=== PATIENT | female | born 1965 | race Caucasian/White ===

== ENCOUNTER 2017-08-21 11:34 | Inpatient (IN) ==
[2017-08-21 15:20] LABS: INR 1.1; Prothrombin Time 11.7 Seconds (9.4-12.1)
[2017-08-21 15:22] LABS: Activated Partial Thrombo Time 33.7 Seconds (26.0-36.0)
[2017-08-21 15:28] LABS: BUN/Creatinine Ratio 13 (6-26); Blood Urea Nitrogen 10 mg/dL (6-20); Carbon Dioxide 20 mEq/L (23-29); Chloride 102 mEq/L (98-107); Glucose 115 mg/dL (70-105); Osmolality,Calculated 278 (280-300); Potassium 3.9 mEq/L (3.5-5.1); Sodium 134 mEq/L (136-145); eGFR For African Americans > 60 (> 60); eGFR For Non-African Americans > 60 (> 60)
[2017-08-21 15:30] LABS: Troponin I < 0.03 ng/mL (< 0.04)
[2017-08-21 15:31] LABS: Basophils % 0.5 %; Eosinophils # 0.2 K/mcL (0.0-0.6); Eosinophils % 2.1 %; Hematocrit 46.2 % (35.3-44.9); Hemoglobin 14.7 g/dL (11.5-15.4); Immature Granulocytes % 0.5 % (0-4); Lymphocytes # 1.8 K/mcL (0.6-4.6); Lymphocytes % 20.7 %; Mean Corpuscular HGB Conc 31.8 g/dL (31.6-35.5); Mean Corpuscular Hemoglobin 28.5 pg (28.0-33.3); Mean Corpuscular Volume 89.5 fL (83.0-100.0); Mean Platelet Volume 9.9 fL (9.4-12.4); Monocytes # 0.8 K/mcL (0.0-1.3); Neutrophils # 5.7 K/mcL (1.6-8.9); Platelet Count 229 K/mcL (140-400); Red Blood Count 5.16 M/mcL (3.82-4.97); Red Cell Distribution Width 13.8 % (11.5-14.5); Segmented Neutrophils % 67.2 %
[2017-08-21] MEDS ORDERED: Aspirin 325 MG TABLET PO ONE (15:40)
--- NOTE | 2017-08-21 15:43 | Emergency Department Note ---
Disposition Clinical Impression: TIA (transient ischemic attack) Qualifiers: Transient cerebral ischemia type: unspecified Qualified Code(s): G45.9 - Transient cerebral ischemic attack, unspecified Disposition: Admitted As Inpatient Referrals: Danya Adkins CNP [Primary Care Provider] - General Adult HPI - General Chief complaint: ED Back Pain/Injury Stated complaint: "pinched nerve" in back per neurology Dr Putnam Time Seen by Provider: 08/21/17 14:34 Source: patient Limitations: no limitations - History of Present Illness Pain Scale: 4 - Related Data Home Medications Medication Instructions Recorded Confirmed Furosemide [Lasix] 20 mg PO DAILY 07/06/16 08/21/17 ALPRAZolam [Xanax 0.5 MG Tablet] 0.5 mg PO TID PRN 06/29/17 08/21/17 Doxepin [Sinequan] 100 mg PO HS 06/29/17 08/21/17 Aspirin [Adult Aspirin Regimen] 81 mg PO DAILY 08/21/17 08/21/17 Atorvastatin [Lipitor] 40 mg PO HS 08/21/17 08/21/17 Dicyclomine [Bentyl] 20 mg PO QID 08/21/17 08/21/17 Folic Acid [Folic Acid] 1 mg PO DAILY 08/21/17 08/21/17 Gabapentin [Neurontin] 300 mg PO TID 08/21/17 08/21/17 Melatonin 5 mg PO HS 08/21/17 08/21/17 Metoprolol Succinate [Toprol Xl] 25 mg PO DAILY 08/21/17 08/21/17 Nystatin POWDER [Nystop] 1 appl TP BID 08/21/17 08/21/17 Omeprazole [PriLOSEC] 40 mg PO DAILY 08/21/17 08/21/17 PARoxetine HCl [Paroxetine HCl] 50 mg PO DAILY 08/21/17 08/21/17 Ropinirole HCl [Requip] 3 mg PO HS 08/21/17 08/21/17 Tizanidine HCl 4 mg PO TID 08/21/17 08/21/17 Topiramate [Topamax] 200 mg PO BID 08/21/17 08/21/17 Allergies Allergy/AdvReac Type Severity Reaction Status Date / Time naproxen [From Naprosyn] Allergy Hives Verified 08/21/17 15:31 Amoxicillin AdvReac Vomiting Verified 08/21/17 15:31 ketorolac [From Toradol] AdvReac Nausea Verified 08/21/17 15:31 tramadol [From Ultram] AdvReac Nausea Verified 08/21/17 15:31 Past Medical History - Past Medical History Medical history: Reports: asthma, COPD, diabetes, hypertension Surgical history: Reports: appendectomy, , cholecystectomy, hysterectomy Psychiatric history: Reports: anxiety, depression, panic disorder 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 - Social History Smoking Status: Never smoker Smokeless Tobacco Status: No Alcohol use: Reports: none Drug use: Reports: none Physical Exam - General Limitations: no limitations General appearance: alert Course Vital Signs Temperature 97.8 F 08/21/17 11:45 Pulse Rate 73 08/21/17 11:45 Respiratory Rate 20 08/21/17 11:45 Blood Pressure 92/68 08/21/17 11:45 O2 Sat by Pulse Oximetry 97 08/21/17 11:45 Temperature 97.8 F 08/21/17 12:57 Pulse Rate 87 08/21/17 15:33 Respiratory Rate 18 08/21/17 15:33 Blood Pressure 106/58 08/21/17 15:33 O2 Sat by Pulse Oximetry 96 08/21/17 15:33 Oxygen Delivery Oxygen Delivery Room Air Medical Decision Making - Lab Data Result diagrams: 08/21/17 14:58 08/21/17 14:58 Lab Results 08/21/17 08/21/17 08/21/17 Range/Units 14:58 14:58 14:58 WBC 8.5 (4.3-11.1) K/mcL RBC 5.16 H (3.82-4.97) M/mcL Hgb 14.7 (11.5-15.4) g/dL Hct 46.2 H (35.3-44.9) % MCV 89.5 (83.0-100.0) fL MCH 28.5 (28.0-33.3) pg MCHC 31.8 (31.6-35.5) g/dL RDW 13.8 (11.5-14.5) % Plt Count 229 (140-400) K/mcL MPV 9.9 (9.4-12.4) fL Immature Gran % 0.5 (0-4) % Seg Neutrophils % 67.2 % Lymphocytes % 20.7 % Monocytes % 9.0 % Eosinophils % 2.1 % Basophils % 0.5 % Neutrophils # 5.7 (1.6-8.9) K/mcL Lymphocytes # 1.8 (0.6-4.6) K/mcL Monocytes # 0.8 (0.0-1.3) K/mcL Eosinophils # 0.2 (0.0-0.6) K/mcL Basophils # 0.0 (0.0-0.2) K/mcL PT 11.7 (9.4-12.1) Seconds INR 1.1 APTT 33.7 (26.0-36.0) Seconds Sodium 134 L (136-145) mEq/L Potassium 3.9 (3.5-5.1) mEq/L Chloride 102 (98-107) mEq/L Carbon Dioxide 20 L (23-29) mEq/L BUN 10 (6-20) mg/dL Creatinine 0.77 (0.60-1.20) mg/dL Est GFR ( Amer) > 60 (> 60) Est GFR (Non-Af Amer) > 60 (> 60) BUN/Creatinine Ratio 13 (6-26) Glucose 115 H (70-105) mg/dL Calculated Osmolality 278 L (280-300) Calcium 9.0 (8.6-10.3) mg/dL Troponin I < 0.03 (< 0.04) ng/mL Attestation Statement - Attestation Attestation: I examined this patient and my medical decision-making was reviewed with the Resident Physician. I agree with the documented findings, disposition and treatment plan as described except to the extent set forth below. 51 year old female presents to the ED with complaints of right leg neuro defecits that have been going on for some time. Jeancarlos was being seen by Dr. Putnam for EMG and he was concnerd that perhaps a stroke may have occured at some point. Dr. putnam has sent jeancarlos here for initial evaluation and admission to the hospital for TIA r/o CVA workup. HCT is negative. ASA has been given. We will admit to medicine with neurolgoy consult
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
[2017-08-21] MEDS ORDERED: Naloxone 0.4 MG/ML INJ IVP PRN (20:37)
[2017-08-21] MEDS: tiZANidine 4 MG TABLET PO SCH (22:34)
[2017-08-21] MEDS: Gabapentin 300 MG CAPSULE PO SCH (22:35)
[2017-08-21] MEDS: Topiramate 100 MG TABLET PO SCH (22:35)
[2017-08-21] MEDS: Melatonin 3 MG TABLET PO SCH (22:48)
[2017-08-21] MEDS ORDERED: Ipratropium/Albuterol Neb 3 ML IH PRN (22:51)
--- NOTE | 2017-08-21 23:10 | Internal Med History&Physical ---
Date of Encounter: 08/21/17 Time of Encounter: 19:00 Internal Medicine - H&P: HPI Chief complaint: Right leg weakness Admitted From: Home Plans for Post Hospital Care: Home History of present illness: Ms. Weinstein is a 51 year old female sent to ER from neurology office for left leg weakness. Past medical history is significant for diabetes on diet control only, COPD on home oxygen, CAD S/P LHC but no stent. Patient was admitted in [facility] for CAD and had LHC there in July. Patient said she started to have right side leg weakness after LHC. Patient denies slurred speech, vision change, dizziness, other parts of body weakness. Patient has frequent fall due to right leg weakness. she was referred to neurology by PCP for possible EMG to rule out nerve problems. Patient was suspected CVA and send to ER for CVA workup. In the emergency room, CT head negative. Patient was admitted for further examination include MRI. Past Med Surg Social Fam HX - Past Medical History Medical history: asthma, COPD, diabetes, hypertension Additional medical history: pinched nerves Psychiatric history: anxiety, depression, panic disorder - Past Surgical History Surgical History: appendectomy, , cholecystectomy, hysterectomy Additional surgical history: Left knee replaced - Social History Smoking Status: Never smoker Smokeless Tobacco Status: No Alcohol use: none Drug use: none - Family History Mother History Unknown: Yes Internal Medicine - H&P: Meds Furosemide [Lasix] 20 mg PO DAILY 07/06/16 [History] ALPRAZolam [Xanax 0.5 MG Tablet] 0.5 mg PO TID PRN 06/29/17 [History] Doxepin [Sinequan] 100 mg PO HS 06/29/17 [History] Aspirin [Adult Aspirin Regimen] 81 mg PO DAILY 08/21/17 [History] Atorvastatin [Lipitor] 40 mg PO HS 08/21/17 [History] Dicyclomine [Bentyl] 20 mg PO QID 08/21/17 [History] Folic Acid [Folic Acid] 1 mg PO DAILY 08/21/17 [History] Gabapentin [Neurontin] 300 mg PO TID 08/21/17 [History] Melatonin 9 mg PO HS 08/21/17 [History] Metoprolol Succinate [Toprol Xl] 25 mg PO DAILY 08/21/17 [History] Nystatin POWDER [Nystop] 1 appl TP BID 08/21/17 [History] Omeprazole [PriLOSEC] 40 mg PO DAILY 08/21/17 [History] PARoxetine HCl [Paroxetine HCl] 50 mg PO DAILY 08/21/17 [History] Ropinirole HCl [Requip] 3 mg PO HS 08/21/17 [History] Tizanidine HCl 4 mg PO TID 08/21/17 [History] Topiramate [Topamax] 200 mg PO BID 08/21/17 [History] 3 Allergy/AdvReac Type Severity Reaction Status Date / Time naproxen [From Naprosyn] Allergy Hives Verified 08/21/17 15:31 Amoxicillin AdvReac Vomiting Verified 08/21/17 15:31 ketorolac [From Toradol] AdvReac Nausea Verified 08/21/17 15:31 tramadol [From Ultram] AdvReac Nausea Verified 08/21/17 15:31 All Systems PM: A 10-system review of systems was performed and is negative for pertinent findings except as documented above in the HPI. - Constitutional Vitals: Temp Pulse Resp BP Pulse Ox 98.3 F 65 16 117/82 95 08/21/17 20:29 08/21/17 20:29 08/21/17 20:29 08/21/17 20:29 08/21/17 20:29 General appearance: Present: A&O X 3, no acute distress, answers questions appropriately - Head Head exam: Present: atraumatic, normocephalic - Eye Eye exam: Present: PERRL, conjuntiva pink, sclera anicteric Pupils: Present: PERRL - Neck Neck exam general surgery: Present: supple, trachea midline. Absent: lymphadenopathy - Respiratory Respiratory exam: Present: CTAB, wheezes (Scattered wheezes bilaterally). Absent: accessory muscle use, rales, rhonchi - Cardiovascular Cardiovascular exam: Present: RRR, +S1, +S2. Absent: diastolic murmur, gallop, rubs, systolic murmur - GI/Abdominal GI/Abdominal exam: Present: normal bowel sounds, soft, no peritoneal signs. Absent: distended, tenderness - Extremities Exam Extremities exam: Present: warm, radial pulses palpable and symmetrical. Absent : calf tenderness, cyanotic, pedal edema - Neurological Exam Neurological exam: Present: CN II-XII intact, motor sensory deficit (Right leg Motor 5-/5), oriented X3, no focal deficits. Absent: pronater drift, facial droop, speech deficit - Skin Skin exam: Present: dry, intact Internal Med - H&P Results - Labs CBC & Chem 7: 08/21/17 14:58 08/21/17 14:58 - Impressions ITS Impressions Brain MRI 08/21/17 20:41 IMPRESSION: Left frontal lobe subcortical white matter signal abnormality with volume loss suggesting chronic infarct. A component of subacute ischemia may also be present. Nonspecific cerebral white matter T2 FLAIR hyperintensities suggestive of chronic microvascular ischemic changes. D/ / 08/21/2017 22:45:26 Alfredo Hughes / saumya Interpreting Provider: Alfredo Hughes - Assessment and plan (1) Ischemic cerebrovascular accident (CVA) Current Visit: Yes Status: Acute Assessment and plan: patient has Right leg weakness. MRI shows left front lobe infarct. - Continue cardiac monitoring - Echo and duplex carotid - PTOT evaluation - Aspirin and atorvastatin - Patient passed bedside swallow evaluation - Neurology consult (2) COPD (chronic obstructive pulmonary disease) Current Visit: Yes Status: Acute Assessment and plan: Patient has wheezing. Will place patient on bronchodilator scheduled and when necessary. Order chest CT to rule out lung disease. Qualifiers: COPD type: emphysema Emphysema type: unspecified Qualified Code(s): J43.9 - Emphysema, unspecified (3) Diabetes mellitus Current Visit: Yes Status: Acute Assessment and plan: Continue diet control Qualifiers: Diabetes mellitus type: type 2 Diabetes mellitus long-term insulin use: without microsoft dynamics consultant use Diabetes mellitus complication status: without complication Qualified Code(s): E11.9 - Type 2 diabetes mellitus without complications (4) DVT prophylaxis Current Visit: Yes Status: Acute Assessment and plan: Heparin subcutaneously - Time Spent With Patient Total time spent is greater than 50% in coordination of care (as documented) at patient's floor/unit and/or counseling patient: 40 minutes Greater than 35 minutes
--- NOTE | 2017-08-21 23:17 | Event Note ---
Date of Encounter: 08/21/17 Time of Encounter: 22:58 Notified by [facility] of abnormal MRI results. Discussed results w/Dr. Hughes who stated that the volume loss seen on MRI suggests chronic infarct of the left frontal lobe in subcortical white matter. He also stated that the potential for subacute ischemia may also be present. In addition, non-specific cerebral white matter T2 FLAIR hyperintensities are suggestive of chronic microvascular ischemic changes. Pts. hx includes recent LHC at [facility] in July 2017. Pt. reported having right leg weakness post-LHC w/frequent falls but denies slurred speech, dizziness, focal deficits, or vision changes. CT of head unremarkable. Neurology consult ordered. Pt. to be monitored closely.
[2017-08-22] MEDS ORDERED: *HR* HYDROcodone/Acet 5/325 mg TABLET PO ONE (01:23)
[2017-08-22] MEDS: Nystatin POWDER 30 GM BOTTLE TP SCH ×3 (01:46→21:10)
[2017-08-22 02:14] LABS: Basophils % 0.5 %; Eosinophils # 0.2 K/mcL (0.0-0.6); Eosinophils % 2.2 %; Hematocrit 42.9 % (35.3-44.9); Hemoglobin 13.8 g/dL (11.5-15.4); Immature Granulocytes % 0.2 % (0-4); Lymphocytes # 1.7 K/mcL (0.6-4.6); Lymphocytes % 19.2 %; Mean Corpuscular HGB Conc 32.2 g/dL (31.6-35.5); Mean Corpuscular Hemoglobin 28.5 pg (28.0-33.3); Mean Corpuscular Volume 88.6 fL (83.0-100.0); Mean Platelet Volume 10.1 fL (9.4-12.4); Monocytes # 0.8 K/mcL (0.0-1.3); Monocytes % 9.3 %; Neutrophils # 5.9 K/mcL (1.6-8.9); Platelet Count 216 K/mcL (140-400); Red Blood Count 4.84 M/mcL (3.82-4.97); Red Cell Distribution Width 13.7 % (11.5-14.5); Segmented Neutrophils % 68.6 %
[2017-08-22 02:31] LABS: BUN/Creatinine Ratio 14 (6-26); Blood Urea Nitrogen 11 mg/dL (6-20); Calcium 9.1 mg/dL (8.6-10.3); Carbon Dioxide 26 mEq/L (23-29); Chloride 102 mEq/L (98-107); Chol/HDL Ratio 4.9 (0-4.9); Cholesterol 175 mg/dL (< 200); Glucose 132 mg/dL (70-105); HDL Cholesterol 36 mg/dL (40-59); LDL Cholesterol,Calculated 110 mg/dL (0-99); Magnesium 2.1 mg/dL (1.6-2.6); Osmolality,Calculated 289 (280-300); Potassium 3.1 mEq/L (3.5-5.1); Sodium 139 mEq/L (136-145); Triglycerides 145 mg/dL (< 150); eGFR For African Americans > 60 (> 60); eGFR For Non-African Americans > 60 (> 60)
[2017-08-22] MEDS: Ipratropium/Albuterol Neb 3 ML IH SCH ×4 (04:07→22:04)
[2017-08-22] MEDS: *HR* Heparin 5,000 UNIT/ML VIAL SQ SCH ×2 (05:16→17:17)
[2017-08-22] MEDS: Furosemide 20 MG TABLET PO SCH (09:06)
[2017-08-22] MEDS: Topiramate 100 MG TABLET PO SCH ×2 (09:06→21:07)
[2017-08-22] MEDS: tiZANidine 4 MG TABLET PO SCH ×3 (09:06→21:07)
[2017-08-22] MEDS: Aspirin Enteric Coated 81 MG Tablet PO SCH (09:06)
[2017-08-22] MEDS: Metoprolol XL (24 HR) Succ 25 MG TAB.ER.24H PO SCH (09:07)
[2017-08-22] MEDS: Folic Acid 1 MG TABLET PO SCH (09:07)
[2017-08-22] MEDS: Gabapentin 300 MG CAPSULE PO SCH ×3 (09:07→21:08)
[2017-08-22] MEDS: Acetaminophen 325 MG TABLET PO PRN (09:08)
--- NOTE | 2017-08-22 17:51 | Neurology - Consult Note ---
Date of Encounter: 08/22/17 Time of Encounter: 17:47 Assessment and Plan (1) Pain in right lower leg Current Visit: Yes Status: Acute The patient presented to my office with a confusing picture which is why I suggested acute admission to expedite diagnosing and treating this patient. At this point I have been able to rule out an acute cerebral infarct. However she has tremendous pain in the right leg and she has an atonic right ankle. The EMG study suggested acute on chronic severe right L5 and S1 radiculopathies. I will obtain an MRI scan of the lumbar spine to confirm this. If the MRI is negative then I will suspect that she has compression of the sciatic nerve at the ischium or in the posterior thigh. History of Present Illness HPI: Chart reviewed, patient was seen and examined. Ms. Weinstein is a 51 year old female who I initially saw in my office on 08/21/2017 to perform EMG studies on both lower extremities. Apparently she began experiencing significant right back and leg pain sometime around July 30 of this year. She however in my office seemed a bit confused and was not a good historian. Considering her history of diabetes hypertension and obesity I thought it might be possible that she could have experienced a stroke and I sent her to the ED for further assessment. She however was admitted at [facility] sometime in mid-July. However according to her back pain and right leg pain were never addressed. In my office she has essentially normal tone of the right ankle. And she has some weakness of the upper extremities. It is difficult to get a good gauge on her true strength because she had some give way as well. The EMG study completed in my office revealed acute on chronic severe right L5 and S1 radiculopathies. 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 She definitely needs an MRI of the lumbar spine. Past Med Surg Social Fam HX - Past Medical History Medical history: asthma, COPD, diabetes, hypertension Additional medical history: pinched nerves Psychiatric history: anxiety, depression, panic disorder - Past Surgical History Surgical History: appendectomy, , cholecystectomy, hysterectomy Additional surgical history: Left knee replaced - Social History Smoking Status: Never smoker Smokeless Tobacco Status: No Alcohol use: none Drug use: none - Family History Mother History Unknown: Yes Medications and Allergies Furosemide [Lasix] 20 mg PO DAILY 07/06/16 [History] ALPRAZolam [Xanax 0.5 MG Tablet] 0.5 mg PO TID PRN 06/29/17 [History] Doxepin [Sinequan] 100 mg PO HS 06/29/17 [History] Aspirin [Adult Aspirin Regimen] 81 mg PO DAILY 08/21/17 [History] Atorvastatin [Lipitor] 40 mg PO HS 08/21/17 [History] Dicyclomine [Bentyl] 20 mg PO QID 08/21/17 [History] Folic Acid [Folic Acid] 1 mg PO DAILY 08/21/17 [History] Gabapentin [Neurontin] 300 mg PO TID 08/21/17 [History] Melatonin 9 mg PO HS 08/21/17 [History] Metoprolol Succinate [Toprol Xl] 25 mg PO DAILY 08/21/17 [History] Nystatin POWDER [Nystop] 1 appl TP BID 08/21/17 [History] Omeprazole [PriLOSEC] 40 mg PO DAILY 08/21/17 [History] PARoxetine HCl [Paroxetine HCl] 50 mg PO DAILY 08/21/17 [History] Ropinirole HCl [Requip] 3 mg PO HS 08/21/17 [History] Tizanidine HCl 4 mg PO TID 08/21/17 [History] Topiramate [Topamax] 200 mg PO BID 08/21/17 [History] 3 Allergy/AdvReac Type Severity Reaction Status Date / Time naproxen [From Naprosyn] Allergy Hives Verified 08/21/17 15:31 Amoxicillin AdvReac Vomiting Verified 08/21/17 15:31 ketorolac [From Toradol] AdvReac Nausea Verified 08/21/17 15:31 tramadol [From Ultram] AdvReac Nausea Verified 08/21/17 15:31 All Systems: The remainder of the systems were reviewed and are negative Review of Systems: The balance of the systems review is negative. Physical Examination - Vital Signs Vital Signs: Initial Vital Signs Temp Pulse Resp BP Pulse Ox 97.8 F 73 20 92/68 97 08/21/17 11:45 08/21/17 11:45 08/21/17 11:45 08/21/17 11:45 08/21/17 11:45 - Neurologic Detailed motor examination: other (Patient has normal bulk and tone of both upper extremities. She has giveaway weakness of both upper extremities and is difficult to gauge her true strength. She is able to raise the right leg off the bed she is able to flex the right leg at the knee. She is not however able to dorsiflex or plantar flex the right foot. She also has weakness of inversion as well as eversion of the right foot. She has normal strength of the left lower extremity. There are no involuntary movements or atrophy present.) Detailed sensory examination: other (She has hypoesthesia of the right leg below the knee. She has a sensory gradient to pinprick of both lower extremities.) Reflex and gait examination: other (Right foot drop is present illness she essentially has an atonic right ankle.) Reflexes: Biceps: 1+, Triceps: 1+, Brachioradialis: 1+, Patella: 0, Achilles: 1 + (The left Achilles reflexes 1. The right Achilles reflexes absent.) Mental Status Examination: Patient does have some difficulties with cognition and central processing. I suspect that these might possibly be genetic in nature. She has some difficulty with motor apraxia. She follows some simple commands and has difficulty with others. She has difficulty processing the explanations that I provide her regarding the right leg pain and weakness. Her son however is present who seems to have normal mentation. Cranial nerve examination: PERRL, EOMI, visual peraza intact, corneal reflexes brisk symmetrically, sensory to face intact, mastication intact, no facial asymmetry is present, no dysarthria, hearing is intact symmetrically, soft palate elevates bilaterally upon phonation, gag reflex intact, flexes SCM and trapezius muscles symmetrically with full power, tongue protrudes midline, no atrophy or facial fasiculations present Cerebellar examination: no dysmetria Results - Laboratory Findings CBC and BMP: 08/22/17 01:11 08/22/17 01:11 Abnormal lab findings: Abnormal lab results Potassium 3.1 mEq/L (3.5-5.1) L 08/22/17 01:11 Glucose 132 mg/dL (70-105) H 08/22/17 01:11 LDL Cholesterol, Calc 110 mg/dL (0-99) H 08/22/17 01:11 HDL Cholesterol 36 mg/dL (40-59) L 08/22/17 01:11 Consult Discharge Plan - Plan Referrals: Danya Adkins, JORGE [Primary Care Provider] -
[2017-08-22] MEDS: *HR* HYDROcodone/Acet 5/325 mg TABLET PO PRN (18:07)
--- NOTE | 2017-08-22 19:36 | Internal Med Progress Note ---
Date of Encounter: 08/22/17 Time of Encounter: 12:34 - Assessment and plan (1) Pain in right lower leg Current Visit: Yes Status: Acute Assessment and plan: Patient was seen by neurology - Neurology consult-he does not believe that this is a cerebral infarct suspicious for acute on chronic severe right L5 and S1 radiculopathy he will obtain an MRI of the lumbar spine-neurology suspects if MRI is negative could be a compression of the sciatic nerve at the seo or the posterior thigh. (2) Ischemic cerebrovascular accident (CVA) Current Visit: Yes Status: Ruled-out Assessment and plan: patient has Right leg weakness. MRI shows left front lobe infarct which appears to be old according to neurology - Continue cardiac monitoring - Echo and duplex carotid-carotid Dopplers bilateral carotid within normal limits. Echo still pending - PTOT evaluation - Aspirin and atorvastatin - Patient passed bedside swallow evaluation - Neurology consult-he does not believe that this is a cerebral infarct suspicious for acute on chronic severe right L5 and S1 radiculopathy he will obtain an MRI of the lumbar spine-neurology suspects if MRI is negative could be a compression of the sciatic nerve at the seo or the posterior thigh. (3) COPD (chronic obstructive pulmonary disease) Current Visit: Yes Status: Acute Assessment and plan: Stable at this time. An 10-year-old bronchodilator scheduled and when necessary. CT chest with no acute pulmonary findings. Qualifiers: COPD type: emphysema Emphysema type: unspecified Qualified Code(s): J43.9 - Emphysema, unspecified (4) Diabetes mellitus Current Visit: Yes Status: Acute Assessment and plan: Continue diet control Qualifiers: Diabetes mellitus type: type 2 Diabetes mellitus [employer] insulin use: without [employer] use Diabetes mellitus complication status: without complication Qualified Code(s): E11.9 - Type 2 diabetes mellitus without complications (5) DVT prophylaxis Current Visit: Yes Status: Acute Assessment and plan: Heparin subcutaneously - Time Spent With Patient Total time spent is greater than 50% in coordination of care (as documented) at patient's floor/unit and/or counseling patient: - Subjective Interval history: Patient was seen and examined at bedside she denies any pain or discomfort and is requesting when she could go home. Advised that she needs to be seen by neurology first. I did review MRI with the patient ended explain there was an old infarct on her MRI and that neurology will review with her. She verbalized understanding. - Constitutional Vitals: Temp Pulse Resp BP Pulse Ox 97.5 F L 70 16 111/70 97 08/22/17 18:32 08/22/17 18:32 08/22/17 18:32 08/22/17 18:32 08/22/17 18:32 General appearance: Present: A&O X 3, no acute distress, answers questions appropriately - Head Head exam: Present: atraumatic, normocephalic - Eye Eye exam: Present: PERRL, conjuntiva pink, sclera anicteric Pupils: Present: PERRL - Neck Neck exam general surgery: Present: supple, trachea midline. Absent: lymphadenopathy - Respiratory Respiratory exam: Present: CTAB. Absent: accessory muscle use, rales, rhonchi, wheezes - Cardiovascular Cardiovascular exam: Present: RRR, +S1, +S2. Absent: diastolic murmur, gallop, rubs, systolic murmur - GI/Abdominal GI/Abdominal exam: Present: normal bowel sounds, soft, no peritoneal signs. Absent: distended, tenderness - Extremities Exam Extremities exam: Present: warm, radial pulses palpable and symmetrical. Absent : calf tenderness, cyanotic, pedal edema Additional comments: Weakness and right leg - Neurological Exam Neurological exam: Present: CN II-XII intact, oriented X3, no focal deficits. Absent: pronater drift, facial droop, speech deficit Internal Medicine: Result - Labs CBC & Chem 7: 08/22/17 01:11 08/22/17 01:11 Labs: Short CBC 08/22/17 Range/Units 01:11 WBC 8.6 (4.3-11.1) K/mcL Hgb 13.8 (11.5-15.4) g/dL Hct 42.9 (35.3-44.9) % Plt Count 216 (140-400) K/mcL Neutrophils # 5.9 (1.6-8.9) K/mcL BMP 08/22/17 01:11 Sodium 139 Potassium 3.1 L Chloride 102 Carbon Dioxide 26 BUN 11 Creatinine 0.76 Glucose 132 H Calcium 9.1 - ABG Interpretation ABG results: PT/INR, D-dimer PT 11.7 Seconds (9.4-12.1) 08/21/17 14:58 Consult Discharge Plan - Plan Referrals: Danya Adkins, JORGE [Primary Care Provider] -
[2017-08-22] MEDS: Melatonin 3 MG TABLET PO SCH (21:07)
[2017-08-22] MEDS ORDERED: Gadolinium Contrast Agent (WT Based) IV PRN (22:26)
[2017-08-23] MEDS: *HR* HYDROcodone/Acet 5/325 mg TABLET PO PRN ×4 (00:21→20:45)
[2017-08-23] MEDS: *HR* Heparin 5,000 UNIT/ML VIAL SQ SCH ×2 (06:00→17:56)
[2017-08-23 06:20] LABS: Basophils % 0.5 %; Eosinophils # 0.3 K/mcL (0.0-0.6); Eosinophils % 5.1 %; Hematocrit 41.5 % (35.3-44.9); Hemoglobin 13.2 g/dL (11.5-15.4); Immature Granulocytes % 0.3 % (0-4); Lymphocytes # 2.1 K/mcL (0.6-4.6); Lymphocytes % 36.4 %; Mean Corpuscular HGB Conc 31.8 g/dL (31.6-35.5); Mean Corpuscular Hemoglobin 28.3 pg (28.0-33.3); Mean Corpuscular Volume 88.9 fL (83.0-100.0); Mean Platelet Volume 9.8 fL (9.4-12.4); Monocytes # 0.6 K/mcL (0.0-1.3); Monocytes % 11.1 %; Neutrophils # 2.7 K/mcL (1.6-8.9); Platelet Count 205 K/mcL (140-400); Red Blood Count 4.67 M/mcL (3.82-4.97); Red Cell Distribution Width 13.7 % (11.5-14.5); Segmented Neutrophils % 46.6 %
[2017-08-23 06:42] LABS: BUN/Creatinine Ratio 23 (6-26); Blood Urea Nitrogen 16 mg/dL (6-20); Calcium 8.9 mg/dL (8.6-10.3); Carbon Dioxide 26 mEq/L (23-29); Chloride 104 mEq/L (98-107); Glucose 115 mg/dL (70-105); Osmolality,Calculated 286 (280-300); Potassium 3.3 mEq/L (3.5-5.1); Sodium 137 mEq/L (136-145); eGFR For African Americans > 60 (> 60); eGFR For Non-African Americans > 60 (> 60)
[2017-08-23] MEDS: Folic Acid 1 MG TABLET PO SCH (07:28)
[2017-08-23] MEDS: Gabapentin 300 MG CAPSULE PO SCH ×3 (07:28→21:40)
[2017-08-23] MEDS: tiZANidine 4 MG TABLET PO SCH ×3 (07:28→21:40)
[2017-08-23] MEDS: Metoprolol XL (24 HR) Succ 25 MG TAB.ER.24H PO SCH (07:28)
[2017-08-23] MEDS: Aspirin Enteric Coated 81 MG Tablet PO SCH (07:28)
[2017-08-23] MEDS: Topiramate 100 MG TABLET PO SCH ×2 (07:28→21:40)
[2017-08-23] MEDS: Furosemide 20 MG TABLET PO SCH (07:29)
[2017-08-23] MEDS: Nystatin POWDER 30 GM BOTTLE TP SCH ×2 (07:35→21:39)
--- NOTE | 2017-08-23 09:02 | Neurology Progress Note ---
Date of Encounter: 08/23/17 Time of Encounter: 09:00 Assessment and Plan (1) Pain in right lower leg Current Visit: Yes Status: Acute I would recommend getting an opinion from our spine surgeon as to to whether or not the abnormality identified on the MRI could be responsible for her trouble. The EMG study study was consistent with acute on chronic right L5 and S1 radiculopathies. She has flaccid tone of the right ankle. Unfortunately she will likely have long-term weakness as this problem has been ongoing for several weeks now. I would also recommend having her seen by PT so that she can be given an ankle-foot orthotic to stabilize the right ankle. If she is not deemed to be a surgical candidate then he may discharge her at your discretion. Subjective Interval history: The chart was reviewed, patient was seen and examined. She had an uneventful night. Thus far her workup has been relatively unrevealing. MRI scan of the head revealed evidence of an old left frontal infarct. She had the MRI scan of the lumbar spine today which in my opinion reveals disc bulge/herniation at L5- S1. Otherwise she has no new complaints and is pushing for discharge. Her clinical neurologic examination has not changed. Objective - Constitutional Vitals: Temp Pulse Resp BP Pulse Ox 97.6 F 74 16 116/70 95 08/23/17 07:33 08/23/17 07:33 08/23/17 07:33 08/23/17 07:33 08/23/17 07:33 - Neurological Exam Motor Examination: Present: other (Patient has normal bulk and tone of both upper extremities. She has giveaway weakness of both upper extremities and is difficult to gauge her true strength. She is able to raise the right leg off the bed she is able to flex the right leg at the knee. She is not however able to dorsiflex or plantar flex the right foot. She also has weakness of inversion as well as eversion of the right foot. She has normal strength of the left lower extremity. There are no involuntary movements or atrophy present.) Sensation intact: Present: other (She has hypoesthesia of the right leg below the knee. She has a sensory gradient to pinprick of both lower extremities.) Reflex and gait examination: other (Right foot drop is present illness she essentially has an atonic right ankle.) Cranial nerve examination: Present: PERRL, EOMI, visual peraza intact, corneal reflexes brisk symmetrically, sensory to face intact, mastication intact, no facial asymmetry is present, no dysarthria, hearing is intact symmetrically, soft palate elevates bilaterally upon phonation, gag reflex intact, flexes SCM and trapezius muscles symmetrically with full power, tongue protrudes midline, no atrophy or facial fasiculations present Cerebellar examination: Present: no dysmetria Results - Laboratory Findings CBC and BMP: 08/23/17 06:00 08/23/17 06:00 Abnormal lab findings: Abnormal lab results Potassium 3.3 mEq/L (3.5-5.1) L 08/23/17 06:00 Glucose 115 mg/dL (70-105) H 08/23/17 06:00 LDL Cholesterol, Calc 110 mg/dL (0-99) H 08/22/17 01:11 HDL Cholesterol 36 mg/dL (40-59) L 08/22/17 01:11 Consult Discharge Plan - Plan Referrals: Danya Adkins, JORGE [Primary Care Provider] -
--- NOTE | 2017-08-23 18:00 | Spinal Consult Note ---
Date of Encounter: 08/23/17 Time of Encounter: 17:58 Assessment and Plan (1) Lumbar stenosis without neurogenic claudication Current Visit: Yes Status: Acute The patient is afebrile vital signs stable. She is neurovascularly intact with regard to bilateral upper extremities. She has weakness in the right lower extremity with dorsiflexion which is 3 on a motor scale. She has no clonus. Her hips move symmetrically. She has a negative straight leg raise. MRI of the lumbar spine reveals multilevel mild degenerative changes. There is multifactorial stenosis at L4-5 and L5-S1 which is moderate. Impression: 1) lumbar stenosis 2) lumbar radiculopathy 4) right foot drop 4 ) focal motor deficit with impaired gait Plan: I had a long discussion with the patient and family member present. I think the patient would benefit from lumbar decompression in the form of a laminectomy L4-S1. Risk benefits and possible complications and alternatives were fully discussed with the patient. The patient appears to understand the major components of the discussion but at this time is contemplating her final decision. She will need medical optimization and clearance prior to surgery. I will await the patient's final decision and we will plan on elective surgery as an add-on case Saturday if medically optimized and patient agrees to the surgery. (2) Lumbar radiculopathy Current Visit: Yes Status: Acute (3) Right foot drop Current Visit: Yes Status: Acute History of Present Illness Chief complaint: Weakness right foot, difficulty with ambulation HPI: Ms. Weinstein is a 51 year old female Admitted to the hospitalist service who has a two-month history of worsening gait and weakness in the right lower extremity. She was evaluated by the neurology service (Dr. Alan Putnam) and had workup including EMG evaluation which reportedly showed acute lumbar radiculopathy. Due to her worsening lower extremity pain, weakness, and gait difficulties she was admitted for definitive management. The patient is a poor historian and a family member is assisting with the history. She denies bowel bladder symptomatology. She is currently using a rolling walker but several months ago she was able to ambulate without assistive devices. Past Med Surg Social Fam HX - Past Medical History Medical history: asthma, COPD, diabetes, hypertension Additional medical history: pinched nerves Psychiatric history: anxiety, depression, panic disorder - Past Surgical History Surgical History: appendectomy, , cholecystectomy, hysterectomy Additional surgical history: Left knee replaced - Social History Smoking Status: Never smoker Smokeless Tobacco Status: No Alcohol use: none Drug use: none - Family History Mother History Unknown: Yes Medications and Allergies Furosemide [Lasix] 20 mg PO DAILY 07/06/16 [History] ALPRAZolam [Xanax 0.5 MG Tablet] 0.5 mg PO TID PRN 06/29/17 [History] Doxepin [Sinequan] 100 mg PO HS 06/29/17 [History] Aspirin [Adult Aspirin Regimen] 81 mg PO DAILY 08/21/17 [History] Atorvastatin [Lipitor] 40 mg PO HS 08/21/17 [History] Dicyclomine [Bentyl] 20 mg PO QID 08/21/17 [History] Folic Acid [Folic Acid] 1 mg PO DAILY 08/21/17 [History] Gabapentin [Neurontin] 300 mg PO TID 08/21/17 [History] Melatonin 9 mg PO HS 08/21/17 [History] Metoprolol Succinate [Toprol Xl] 25 mg PO DAILY 08/21/17 [History] Nystatin POWDER [Nystop] 1 appl TP BID 08/21/17 [History] Omeprazole [PriLOSEC] 40 mg PO DAILY 08/21/17 [History] PARoxetine HCl [Paroxetine HCl] 50 mg PO DAILY 08/21/17 [History] Ropinirole HCl [Requip] 3 mg PO HS 08/21/17 [History] Tizanidine HCl 4 mg PO TID 08/21/17 [History] Topiramate [Topamax] 200 mg PO BID 08/21/17 [History] 3 Allergy/AdvReac Type Severity Reaction Status Date / Time naproxen [From Naprosyn] Allergy Hives Verified 08/21/17 15:31 Amoxicillin AdvReac Vomiting Verified 08/21/17 15:31 ketorolac [From Toradol] AdvReac Nausea Verified 08/21/17 15:31 tramadol [From Ultram] AdvReac Nausea Verified 08/21/17 15:31 Results - Labs Result Diagrams: 08/23/17 06:00 08/23/17 06:00 Labs: Abnormal lab results Potassium 3.3 mEq/L (3.5-5.1) L 08/23/17 06:00 Glucose 115 mg/dL (70-105) H 08/23/17 06:00 LDL Cholesterol, Calc 110 mg/dL (0-99) H 08/22/17 01:11 HDL Cholesterol 36 mg/dL (40-59) L 08/22/17 01:11 H & H 08/23/17 Range/Units 06:00 Hgb 13.2 (11.5-15.4) g/dL Hct 41.5 (35.3-44.9) % All other labs normal. Consult Discharge Plan - Plan Referrals: Danya Adkins CNP [Primary Care Provider] - 08/29/17 8:15 am
--- NOTE | 2017-08-23 20:03 | Internal Med Progress Note ---
Date of Encounter: 08/23/17 Time of Encounter: 16:00 - Assessment and plan (1) Pain in right lower leg Current Visit: Yes Status: Acute Assessment and plan: Patient was seen by neurology - Neurology consult-he does not believe that this is a cerebral infarct- suspicious for acute on chronic severe right L5 and S1 radiculopathy he will obtain an MRI of the lumbar spine-which does show disc bulge/herniation of L5- S1 orthopedic spine has been consulted Continue with physical therapy at this time (2) Ischemic cerebrovascular accident (CVA) Current Visit: Yes Status: Ruled-out Assessment and plan: patient has Right leg weakness. MRI shows left front lobe infarct which appears to be old according to neurology Continue with aspirin and statin Neurology does not believe that this is a cerebrovascular infarct (3) COPD (chronic obstructive pulmonary disease) Current Visit: Yes Status: Acute Assessment and plan: Stable at this time. An 10-year-old bronchodilator scheduled and when necessary. CT chest with no acute pulmonary findings. Qualifiers: COPD type: emphysema Emphysema type: unspecified Qualified Code(s): J43.9 - Emphysema, unspecified (4) Diabetes mellitus Current Visit: Yes Status: Acute Assessment and plan: Continue diet control Qualifiers: Diabetes mellitus type: type 2 Diabetes mellitus chcf insulin use: without moth exterminator use Diabetes mellitus complication status: without complication Qualified Code(s): E11.9 - Type 2 diabetes mellitus without complications (5) Lumbar stenosis without neurogenic claudication Current Visit: Yes Status: Acute Assessment and plan: Patient was seen by orthopedic spine Dr. Arredondo according to note dated 08/23/17 MRI of the lumbar spine reveals multilevel mild degenerative changes-there is multifactorial stenosis at L4-5 and L5-S1 Spinal surgery plans were a laminectomy L4-S1 which should be scheduled for Saturday-at this time if patient agrees to surgery. (6) DVT prophylaxis Current Visit: Yes Status: Acute Assessment and plan: Heparin subcutaneously - Time Spent With Patient Total time spent is greater than 50% in coordination of care (as documented) at patient's floor/unit and/or counseling patient: - Subjective Interval history: Patient was seen and examined at bedside she denies any pain or discomfort, informed patient that she will be seen by spinal surgeon today asking questions concerning possible spinal surgery. Advised patient and family member that unsure of Dr. Arredondo's recommendations at this time and they could speak with him concerning surgery. They verbalized understanding. - Constitutional Vitals: Temp Pulse Resp BP Pulse Ox 97.3 F L 71 16 134/79 96 08/23/17 18:54 08/23/17 18:54 08/23/17 18:54 08/23/17 18:54 08/23/17 18:54 General appearance: Present: A&O X 3, no acute distress, answers questions appropriately - Head Head exam: Present: atraumatic, normocephalic - Eye Eye exam: Present: PERRL, conjuntiva pink, sclera anicteric Pupils: Present: PERRL - Neck Neck exam general surgery: Present: supple, trachea midline. Absent: lymphadenopathy - Respiratory Respiratory exam: Present: CTAB. Absent: accessory muscle use, rales, rhonchi, wheezes - Cardiovascular Cardiovascular exam: Present: RRR, +S1, +S2. Absent: diastolic murmur, gallop, rubs, systolic murmur - GI/Abdominal GI/Abdominal exam: Present: normal bowel sounds, soft, no peritoneal signs. Absent: distended, tenderness - Extremities Exam Extremities exam: Present: warm, radial pulses palpable and symmetrical. Absent : calf tenderness, cyanotic, pedal edema Additional comments: Right leg weakness - Neurological Exam Neurological exam: Present: CN II-XII intact, oriented X3, no focal deficits. Absent: pronater drift, facial droop, speech deficit - Skin Skin exam: Present: dry, intact Internal Medicine: Result - Labs CBC & Chem 7: 08/23/17 06:00 08/23/17 06:00 Labs: Short CBC 08/23/17 Range/Units 06:00 WBC 5.7 (4.3-11.1) K/mcL Hgb 13.2 (11.5-15.4) g/dL Hct 41.5 (35.3-44.9) % Plt Count 205 (140-400) K/mcL Neutrophils # 2.7 (1.6-8.9) K/mcL BMP 08/23/17 06:00 Sodium 137 Potassium 3.3 L Chloride 104 Carbon Dioxide 26 BUN 16 Creatinine 0.71 Glucose 115 H Calcium 8.9 - ABG Interpretation ABG results: PT/INR, D-dimer PT 11.7 Seconds (9.4-12.1) 08/21/17 14:58 - Impressions Impressions Echocardiogram 08/22/17 15:00 Impressions: Technically sub-optimal due to poor echocardiographic windows. LVEF 55-60%. Normal LV chamber size, wall thickness and function. Mild left ventricular diastolic dysfunction. Normal right ventricular structure and function. No evidence of pulmonary hypertension. No significant valvular dysfunction. Suboptimal image quality, but agitated saline study appeared negative for intra-cardiac shunting. Left Ventricular Wall Motion: Rest Echo Findings All wall segments showed normal motion. Findings: Study Quality * Technically sub-optimal due to poor echocardiographic windows. ECG Findings * Normal sinus rhythm. Left Ventricle * LVEF 55-60%. * Normal LV chamber size, wall thickness and function. * Mild left ventricular diastolic dysfunction. Right Ventricle * Normal right ventricular structure and function. Left Atrium * Mild to moderately dilated left atrium. Right Atrium * Normal right atrial size. Aortic Valve * Aortic valve not well visualized. * No aortic regurgitation. * No aortic stenosis. Mitral Valve * Normal mitral valve structure and function. * No mitral stenosis. * No mitral regurgitation. Tricuspid Valve * Normal tricuspid valve structure and function. * Trace tricuspid regurgitation. * No evidence of pulmonary hypertension. Pulmonic Valve * Pulmonic valve not well visualized. * No pulmonic regurgitation. Pericardium * The pericardium appears normal. IVC * The IVC is not well evaluated. Pulmonary Artery * Pulmonary artery not well visualized. Lumbar Spine MRI 08/22/17 22:26 IMPRESSION: Small broad-based central disc protrusion at L5-S1 with associated annular tear. Annular disc bulge at L4-L5. Old mild compression deformity involving the superior endplate of T12. D/ / 08/23/2017 08:33:15 Sherman Ferrer MD / Sammie Grimaldo Interpreting Provider: Sherman Ferrer MD Consult Discharge Plan - Plan Referrals: Danya Adkins CNP [Primary Care Provider] - 08/29/17 8:15 am
[2017-08-23] MEDS: Melatonin 3 MG TABLET PO SCH (21:41)
[2017-08-24] MEDS: *HR* Heparin 5,000 UNIT/ML VIAL SQ SCH ×2 (05:54→17:34)
[2017-08-24] MEDS: Topiramate 100 MG TABLET PO SCH ×2 (09:16→21:19)
[2017-08-24] MEDS: Aspirin Enteric Coated 81 MG Tablet PO SCH (09:16)
[2017-08-24] MEDS: Gabapentin 300 MG CAPSULE PO SCH ×3 (09:16→21:18)
[2017-08-24] MEDS: Metoprolol XL (24 HR) Succ 25 MG TAB.ER.24H PO SCH (09:16)
[2017-08-24] MEDS: *HR* HYDROcodone/Acet 5/325 mg TABLET PO PRN ×3 (09:16→21:19)
[2017-08-24] MEDS: Nystatin POWDER 30 GM BOTTLE TP SCH ×2 (09:16→21:13)
[2017-08-24] MEDS: Furosemide 20 MG TABLET PO SCH (09:16)
[2017-08-24] MEDS: tiZANidine 4 MG TABLET PO SCH ×3 (09:16→21:18)
[2017-08-24] MEDS: Folic Acid 1 MG TABLET PO SCH (09:16)
--- NOTE | 2017-08-24 10:36 | Internal Med Progress Note ---
Date of Encounter: 08/24/17 Time of Encounter: 10:34 - Assessment and plan (1) Pain in right lower leg Current Visit: Yes Status: Acute Assessment and plan: Patient was seen by neurology - Neurology consult-he does not believe that this is a cerebral infarct- suspicious for acute on chronic severe right L5 and S1 radiculopathy he will obtain an MRI of the lumbar spine-which does show disc bulge/herniation of L5- S1 orthopedic spine has been consulted- laminectomy on Saturday Continue with physical therapy at this time (2) Ischemic cerebrovascular accident (CVA) Current Visit: Yes Status: Ruled-out Assessment and plan: patient has Right leg weakness. MRI shows left front lobe infarct which appears to be old according to neurology Continue with aspirin and statin Neurology does not believe that this is a acute cerebrovascular infarct cont with ASa Statin (3) COPD (chronic obstructive pulmonary disease) Current Visit: Yes Status: Acute Assessment and plan: Stable at this time. bronchodilator scheduled and when necessary. CT chest with no acute pulmonary findings. Qualifiers: COPD type: emphysema Emphysema type: unspecified Qualified Code(s): J43.9 - Emphysema, unspecified (4) Diabetes mellitus Current Visit: Yes Status: Acute Assessment and plan: Continue diet control at this time Qualifiers: Diabetes mellitus type: type 2 Diabetes mellitus ferry terminal agent insulin use: without senior care use Diabetes mellitus complication status: without complication Qualified Code(s): E11.9 - Type 2 diabetes mellitus without complications (5) Lumbar stenosis without neurogenic claudication Current Visit: Yes Status: Acute Assessment and plan: Patient was seen by orthopedic spine Dr. Arredondo according to note dated 08/23/17 MRI of the lumbar spine reveals multilevel mild degenerative changes-there is multifactorial stenosis at L4-5 and L5-S1 Spinal surgery plans were a laminectomy L4-S1 which should be scheduled for Saturday-at this time if patient agrees to surgery. (6) DVT prophylaxis Current Visit: Yes Status: Acute - Time Spent With Patient Total time spent is greater than 50% in coordination of care (as documented) at patient's floor/unit and/or counseling patient: - Subjective Interval history: Patient was seen and examined at bedside she denies any pain or discomfort, she is to undergo laminectomy on Saturday Reviewed treatment plan verbalizes understanding - Constitutional Vitals: Temp Pulse Resp BP Pulse Ox 97.5 F L 79 18 110/71 96 08/24/17 09:11 08/24/17 09:11 08/24/17 09:11 08/24/17 09:11 08/24/17 09:11 General appearance: Present: A&O X 3, no acute distress, answers questions appropriately - Head Head exam: Present: atraumatic, normocephalic - Eye Eye exam: Present: PERRL, conjuntiva pink, sclera anicteric Pupils: Present: PERRL - Neck Neck exam general surgery: Present: supple, trachea midline. Absent: lymphadenopathy - Respiratory Respiratory exam: Present: CTAB. Absent: accessory muscle use, rales, rhonchi, wheezes - Cardiovascular Cardiovascular exam: Present: RRR, +S1, +S2. Absent: diastolic murmur, gallop, rubs, systolic murmur - GI/Abdominal GI/Abdominal exam: Present: normal bowel sounds, soft, no peritoneal signs. Absent: distended, tenderness - Extremities Exam Extremities exam: Present: warm, radial pulses palpable and symmetrical. Absent : calf tenderness, cyanotic, pedal edema - Neurological Exam Neurological exam: Present: CN II-XII intact, oriented X3, no focal deficits. Absent: pronater drift, facial droop, speech deficit - Skin Skin exam: Present: dry, intact Internal Medicine: Result - Labs CBC & Chem 7: 08/23/17 06:00 08/23/17 06:00 - ABG Interpretation ABG results: PT/INR, D-dimer PT 11.7 Seconds (9.4-12.1) 08/21/17 14:58 - Impressions Impressions Echocardiogram 08/22/17 15:00 Impressions: Technically sub-optimal due to poor echocardiographic windows. LVEF 55-60%. Normal LV chamber size, wall thickness and function. Mild left ventricular diastolic dysfunction. Normal right ventricular structure and function. No evidence of pulmonary hypertension. No significant valvular dysfunction. Suboptimal image quality, but agitated saline study appeared negative for intra-cardiac shunting. Left Ventricular Wall Motion: Rest Echo Findings All wall segments showed normal motion. Findings: Study Quality * Technically sub-optimal due to poor echocardiographic windows. ECG Findings * Normal sinus rhythm. Left Ventricle * LVEF 55-60%. * Normal LV chamber size, wall thickness and function. * Mild left ventricular diastolic dysfunction. Right Ventricle * Normal right ventricular structure and function. Left Atrium * Mild to moderately dilated left atrium. Right Atrium * Normal right atrial size. Aortic Valve * Aortic valve not well visualized. * No aortic regurgitation. * No aortic stenosis. Mitral Valve * Normal mitral valve structure and function. * No mitral stenosis. * No mitral regurgitation. Tricuspid Valve * Normal tricuspid valve structure and function. * Trace tricuspid regurgitation. * No evidence of pulmonary hypertension. Pulmonic Valve * Pulmonic valve not well visualized. * No pulmonic regurgitation. Pericardium * The pericardium appears normal. IVC * The IVC is not well evaluated. Pulmonary Artery * Pulmonary artery not well visualized. Consult Discharge Plan - Plan Referrals: Danya Adkins CNP [Primary Care Provider] - 08/29/17 8:15 am
[2017-08-24] MEDS: ALPRAZolam 0.5 MG TABLET PO PRN ×2 (17:34→21:24)
[2017-08-24] MEDS: Melatonin 3 MG TABLET PO SCH (21:19)
[2017-08-25 05:11] LABS: Basophils % 0.5 %; Eosinophils # 0.3 K/mcL (0.0-0.6); Eosinophils % 4.4 %; Hematocrit 38.5 % (35.3-44.9); Hemoglobin 12.2 g/dL (11.5-15.4); Immature Granulocytes % 0.5 % (0-4); Lymphocytes # 2.3 K/mcL (0.6-4.6); Lymphocytes % 34.9 %; Mean Corpuscular HGB Conc 31.7 g/dL (31.6-35.5); Mean Corpuscular Hemoglobin 28.4 pg (28.0-33.3); Mean Corpuscular Volume 89.5 fL (83.0-100.0); Mean Platelet Volume 9.9 fL (9.4-12.4); Monocytes # 0.6 K/mcL (0.0-1.3); Monocytes % 9.5 %; Neutrophils # 3.3 K/mcL (1.6-8.9); Platelet Count 209 K/mcL (140-400); Red Cell Distribution Width 13.7 % (11.5-14.5); Segmented Neutrophils % 50.2 %
[2017-08-25 05:38] LABS: BUN/Creatinine Ratio 28 (6-26); Blood Urea Nitrogen 19 mg/dL (6-20); Calcium 8.7 mg/dL (8.6-10.3); Carbon Dioxide 25 mEq/L (23-29); Chloride 106 mEq/L (98-107); Glucose 115 mg/dL (70-105); Osmolality,Calculated 289 (280-300); Potassium 3.5 mEq/L (3.5-5.1); Sodium 138 mEq/L (136-145); eGFR For African Americans > 60 (> 60); eGFR For Non-African Americans > 60 (> 60)
[2017-08-25] MEDS: *HR* Heparin 5,000 UNIT/ML VIAL SQ SCH (05:56)
[2017-08-25] MEDS: *HR* HYDROcodone/Acet 5/325 mg TABLET PO PRN ×3 (06:01→20:21)
[2017-08-25] MEDS: Acetaminophen 325 MG TABLET PO PRN (08:36)
[2017-08-25] MEDS: Aspirin Enteric Coated 81 MG Tablet PO SCH (08:37)
[2017-08-25] MEDS: Folic Acid 1 MG TABLET PO SCH (08:37)
[2017-08-25] MEDS: tiZANidine 4 MG TABLET PO SCH ×3 (08:37→21:36)
[2017-08-25] MEDS: Topiramate 100 MG TABLET PO SCH ×2 (08:37→21:36)
[2017-08-25] MEDS: Nystatin POWDER 30 GM BOTTLE TP SCH ×2 (08:37→21:37)
[2017-08-25] MEDS: Gabapentin 300 MG CAPSULE PO SCH ×3 (08:37→21:36)
[2017-08-25] MEDS: Furosemide 20 MG TABLET PO SCH (08:37)
[2017-08-25] MEDS: Metoprolol XL (24 HR) Succ 25 MG TAB.ER.24H PO SCH (08:39)
--- NOTE | 2017-08-25 09:51 | Internal Med Progress Note ---
Date of Encounter: 08/25/17 Time of Encounter: 09:49 - Assessment and plan (1) Pain in right lower leg Current Visit: Yes Status: Acute Assessment and plan: Patient was seen by neurology - Neurology consult-he does not believe that this is a cerebral infarct- suspicious for acute on chronic severe right L5 and S1 radiculopathy he will obtain an MRI of the lumbar spine-which does show disc bulge/herniation of L5- S1 orthopedic spine has been consulted- laminectomy on Saturday Continue with physical therapy at this time (2) Ischemic cerebrovascular accident (CVA) Current Visit: Yes Status: Ruled-out Assessment and plan: patient has Right leg weakness. MRI shows left front lobe infarct which appears to be old according to neurology Continue with aspirin and statin Neurology does not believe that this is a acute cerebrovascular infarct cont with ASa Statin (3) COPD (chronic obstructive pulmonary disease) Current Visit: Yes Status: Acute Assessment and plan: Stable at this time. bronchodilator scheduled and when necessary. CT chest with no acute pulmonary findings. Qualifiers: COPD type: emphysema Emphysema type: unspecified Qualified Code(s): J43.9 - Emphysema, unspecified (4) Diabetes mellitus Current Visit: Yes Status: Acute Assessment and plan: Continue diet control at this time Qualifiers: Diabetes mellitus type: type 2 Diabetes mellitus intermediate project manager insulin use: without long-term use Diabetes mellitus complication status: without complication Qualified Code(s): E11.9 - Type 2 diabetes mellitus without complications (5) Lumbar stenosis without neurogenic claudication Current Visit: Yes Status: Acute Assessment and plan: Patient was seen by orthopedic spine Dr. Arredondo according to note dated 08/23/17 MRI of the lumbar spine reveals multilevel mild degenerative changes-there is multifactorial stenosis at L4-5 and L5-S1 Spinal surgery plans a laminectomy L4-S1 which scheduled for Saturday-revised cardiac risk index is 1-due to previous stroke patient will be nothing by mouth after midnight (6) DVT prophylaxis Current Visit: Yes Status: Acute Assessment and plan: Hold heparin for impending surgery- SCD for now - Time Spent With Patient Total time spent is greater than 50% in coordination of care (as documented) at patient's floor/unit and/or counseling patient: - Subjective Interval history: Patient was seen and examined at bedside she denies any pain or discomfort, she is to undergo laminectomy on Saturday, she will be NPO after midnight Reviewed treatment plan verbalizes understanding - Constitutional Vitals: Temp Pulse Resp BP Pulse Ox 97.8 F 75 15 111/67 95 08/25/17 07:48 08/25/17 07:48 08/25/17 07:48 08/25/17 07:48 08/25/17 07:48 General appearance: Present: A&O X 3, no acute distress, answers questions appropriately - Head Head exam: Present: atraumatic, normocephalic - Eye Eye exam: Present: PERRL, conjuntiva pink, sclera anicteric Pupils: Present: PERRL - Neck Neck exam general surgery: Present: supple, trachea midline. Absent: lymphadenopathy - Respiratory Respiratory exam: Present: CTAB. Absent: accessory muscle use, rales, rhonchi, wheezes - Cardiovascular Cardiovascular exam: Present: RRR, +S1, +S2. Absent: diastolic murmur, gallop, rubs, systolic murmur - GI/Abdominal GI/Abdominal exam: Present: normal bowel sounds, soft, no peritoneal signs. Absent: distended, tenderness - Extremities Exam Extremities exam: Present: warm, radial pulses palpable and symmetrical. Absent : calf tenderness, cyanotic, pedal edema - Neurological Exam Neurological exam: Present: CN II-XII intact, oriented X3, no focal deficits. Absent: pronater drift, facial droop, speech deficit - Skin Skin exam: Present: dry, intact Internal Medicine: Result - Labs CBC & Chem 7: 08/25/17 04:24 08/25/17 04:24 Labs: Short CBC 08/25/17 Range/Units 04:24 WBC 6.5 (4.3-11.1) K/mcL Hgb 12.2 (11.5-15.4) g/dL Hct 38.5 (35.3-44.9) % Plt Count 209 (140-400) K/mcL Neutrophils # 3.3 (1.6-8.9) K/mcL BMP 08/25/17 04:24 Sodium 138 Potassium 3.5 Chloride 106 Carbon Dioxide 25 BUN 19 Creatinine 0.67 Glucose 115 H Calcium 8.7 - ABG Interpretation ABG results: PT/INR, D-dimer PT 11.7 Seconds (9.4-12.1) 08/21/17 14:58 Consult Discharge Plan - Plan Referrals: Danya Adkins CNP [Primary Care Provider] - 08/29/17 8:15 am
[2017-08-25] MEDS: ALPRAZolam 0.5 MG TABLET PO PRN ×2 (15:19→21:36)
[2017-08-25] MEDS: Melatonin 3 MG TABLET PO SCH (21:36)
[2017-08-26 05:08] LABS: Basophils # 0.1 K/mcL (0.0-0.2); Basophils % 0.6 %; Eosinophils # 0.3 K/mcL (0.0-0.6); Eosinophils % 3.6 %; Hematocrit 36.3 % (35.3-44.9); Hemoglobin 11.8 g/dL (11.5-15.4); Immature Granulocytes % 0.5 % (0-4); Lymphocytes # 1.7 K/mcL (0.6-4.6); Lymphocytes % 21.7 %; Mean Corpuscular HGB Conc 32.5 g/dL (31.6-35.5); Mean Corpuscular Volume 89.2 fL (83.0-100.0); Mean Platelet Volume 9.4 fL (9.4-12.4); Monocytes # 0.8 K/mcL (0.0-1.3); Monocytes % 9.4 %; Neutrophils # 5.1 K/mcL (1.6-8.9); Platelet Count 201 K/mcL (140-400); Red Blood Count 4.07 M/mcL (3.82-4.97); Red Cell Distribution Width 13.9 % (11.5-14.5); Segmented Neutrophils % 64.2 %
[2017-08-26 05:26] LABS: BUN/Creatinine Ratio 32 (6-26); Blood Urea Nitrogen 18 mg/dL (6-20); Calcium 8.5 mg/dL (8.6-10.3); Carbon Dioxide 25 mEq/L (23-29); Chloride 108 mEq/L (98-107); Glucose 137 mg/dL (70-105); Osmolality,Calculated 292 (280-300); Potassium 3.7 mEq/L (3.5-5.1); Sodium 139 mEq/L (136-145); eGFR For African Americans > 60 (> 60); eGFR For Non-African Americans > 60 (> 60)
[2017-08-26 05:27] LABS: Prothrombin Time 10.4 Seconds (9.4-12.1)
[2017-08-26 05:30] LABS: Activated Partial Thrombo Time 30.1 Seconds (26.0-36.0)
[2017-08-26] MEDS: Folic Acid 1 MG TABLET PO SCH (08:27)
[2017-08-26] MEDS: Gabapentin 300 MG CAPSULE PO SCH ×2 (08:27→15:00)
[2017-08-26] MEDS: Furosemide 20 MG TABLET PO SCH (08:27)
[2017-08-26] MEDS: Aspirin Enteric Coated 81 MG Tablet PO SCH (08:27)
[2017-08-26] MEDS: tiZANidine 4 MG TABLET PO SCH ×2 (08:28→15:00)
[2017-08-26] MEDS: Nystatin POWDER 30 GM BOTTLE TP SCH (08:28)
[2017-08-26] MEDS: Metoprolol XL (24 HR) Succ 25 MG TAB.ER.24H PO SCH (08:28)
[2017-08-26] MEDS: Topiramate 100 MG TABLET PO SCH (08:28)
[2017-08-26] MEDS: *HR* HYDROcodone/Acet 5/325 mg TABLET PO PRN ×2 (08:34→17:56)
--- NOTE | 2017-08-26 10:01 | Electrocardiograph Report ---
[place] [id number] Test Date: 2017-08-25 Pat Name: Ericka Weinstein Department: 113 Room: 3B41 Gender: F State Editor: : 1965 Requested By: Marjorie Park Order Number: [id number] Reading MD: Kevin Marroquin Measurements Intervals [place] Rate: 70 P: 39 CT: 131 QRS: 84 QRSD: 98 T: 53 QT: 391 QTc: 412 Interpretive Statements SINUS RHYTHM LOW QRS VOLTAGE IN PRECORDIAL LEADS Electronically Signed On 08-26-2017 9:59:55 EDT by Kevin Marroquin
--- NOTE | 2017-08-26 11:03 | Internal Med Progress Note ---
Date of Encounter: 08/26/17 Time of Encounter: 11:07 - Assessment and plan (1) Pain in right lower leg Current Visit: Yes Status: Acute Assessment and plan: Patient was seen by neurology - Neurology consult-he does not believe that this is a cerebral infarct- suspicious for acute on chronic severe right L5 and S1 radiculopathy he will obtain an MRI of the lumbar spine-which does show disc bulge/herniation of L5- S1 orthopedic spine has been consulted- laminectomy today Continue with physical therapy at this time (2) Ischemic cerebrovascular accident (CVA) Current Visit: Yes Status: Ruled-out Assessment and plan: patient has Right leg weakness. MRI shows left front lobe infarct which appears to be old according to neurology Continue with aspirin and statin Neurology does not believe that this is a acute cerebrovascular infarct cont with ASa Statin (3) COPD (chronic obstructive pulmonary disease) Current Visit: Yes Status: Acute Assessment and plan: Stable at this time. bronchodilator scheduled and when necessary. CT chest with no acute pulmonary findings. Qualifiers: COPD type: emphysema Emphysema type: unspecified Qualified Code(s): J43.9 - Emphysema, unspecified (4) Diabetes mellitus Current Visit: Yes Status: Acute Assessment and plan: controlled Continue diet control at this time Qualifiers: Diabetes mellitus type: type 2 Diabetes mellitus group home insulin use: without group home use Diabetes mellitus complication status: without complication Qualified Code(s): E11.9 - Type 2 diabetes mellitus without complications (5) Lumbar stenosis without neurogenic claudication Current Visit: Yes Status: Acute Assessment and plan: Patient was seen by orthopedic spine Dr. Arredondo according to note dated 08/23/17 MRI of the lumbar spine reveals multilevel mild degenerative changes-there is multifactorial stenosis at L4-5 and L5-S1 Spinal surgery plans a laminectomy L4-S1 which scheduled for Saturday-revised cardiac risk index is 1-due to previous stroke patient has been nothing by mouth since midnight (6) DVT prophylaxis Current Visit: Yes Status: Acute Assessment and plan: Hold heparin for impending surgery- SCD for now - Time Spent With Patient Total time spent is greater than 50% in coordination of care (as documented) at patient's floor/unit and/or counseling patient: - Subjective Interval history: Patient was seen and examined at bedside she denies any pain or discomfort, she is to undergo laminectomy today. She has been nothing by mouth after midnight she has a revised cardiac risk index of 1 secondary to previous stroke EKG with sinus rhythm echo has been completed with EF of 55-60% and mild diastolic dysfunction. She does have a history of COPD however her respiratory status has been stable. She does have decreased functional capacity due to limited mobility from a previous stroke as well as stenosis at L4-5 and L5-S1 which is moderate. She has not had any chest pain during admission She has a intermediate risk for cardiovascular event during surgical procedure. Patient verbalizes understanding and agrees with surgery. I did review this case with Dr. Mondragon agrees with plan - Constitutional Vitals: Temp Pulse Resp BP Pulse Ox 98.0 F 77 16 106/55 95 08/26/17 07:24 08/26/17 07:24 08/26/17 07:24 08/26/17 07:24 08/26/17 07:24 General appearance: Present: A&O X 3, no acute distress, answers questions appropriately - Head Head exam: Present: atraumatic, normocephalic - Eye Eye exam: Present: PERRL, conjuntiva pink, sclera anicteric Pupils: Present: PERRL - Neck Neck exam general surgery: Present: supple, trachea midline. Absent: lymphadenopathy - Respiratory Respiratory exam: Present: CTAB. Absent: accessory muscle use, rales, rhonchi, wheezes - Cardiovascular Cardiovascular exam: Present: RRR, +S1, +S2. Absent: diastolic murmur, gallop, rubs, systolic murmur - GI/Abdominal GI/Abdominal exam: Present: normal bowel sounds, soft, no peritoneal signs. Absent: distended, tenderness - Extremities Exam Extremities exam: Present: warm, radial pulses palpable and symmetrical. Absent : calf tenderness, cyanotic, pedal edema Additional comments: Right lower extremity weakness - Neurological Exam Neurological exam: Present: CN II-XII intact, oriented X3, no focal deficits. Absent: pronater drift, facial droop, speech deficit - Skin Skin exam: Present: dry, intact Internal Medicine: Result - Labs CBC & Chem 7: 08/26/17 04:55 08/26/17 04:55 Labs: Short CBC 08/26/17 Range/Units 04:55 WBC 8.0 (4.3-11.1) K/mcL Hgb 11.8 (11.5-15.4) g/dL Hct 36.3 (35.3-44.9) % Plt Count 201 (140-400) K/mcL Neutrophils # 5.1 (1.6-8.9) K/mcL BMP 08/26/17 04:55 Sodium 139 Potassium 3.7 Chloride 108 H Carbon Dioxide 25 BUN 18 Creatinine 0.56 L Glucose 137 H Calcium 8.5 L - ABG Interpretation ABG results: PT/INR, D-dimer PT 10.4 Seconds (9.4-12.1) 08/26/17 04:55 Consult Discharge Plan - Plan Referrals: Danya Adkins, JORGE [Primary Care Provider] - 08/29/17 8:15 am
--- NOTE | 2017-08-26 11:38 | Anesthesia Evaluation PreOp ---
Date of Encounter: 08/26/17 Time of Encounter: 13:19 - Past History Planned Operation: L4-S1 laminectomy Cardiac History: HTN, Other (negative LHC last month) Pulmonary History: Asthma, Snore DIRECTOR OF PUBLIC RELATIONS History: CVA (acute CVA ruled out by neurologist ... RLE weakness most likely due to spinal pathology, however, old left frontal infarct was present on recent MRI), Other (R-sided leg weakness after LHC, anxiety/depression) Other Medical History: Diabetes Type II (diet controlled), GERD, Other (BMI 49) Anesthesia History: No Prior Anesthetic Complications Alcohol Use: none Drug use: none Medications and Allergies Furosemide [Lasix] 20 mg PO DAILY 07/06/16 [History] ALPRAZolam [Xanax 0.5 MG Tablet] 0.5 mg PO TID PRN 06/29/17 [History] Doxepin [Sinequan] 100 mg PO HS 06/29/17 [History] Aspirin [Adult Aspirin Regimen] 81 mg PO DAILY 08/21/17 [History] Atorvastatin [Lipitor] 40 mg PO HS 08/21/17 [History] Dicyclomine [Bentyl] 20 mg PO QID 08/21/17 [History] Folic Acid [Folic Acid] 1 mg PO DAILY 08/21/17 [History] Gabapentin [Neurontin] 300 mg PO TID 08/21/17 [History] Melatonin 9 mg PO HS 08/21/17 [History] Metoprolol Succinate [Toprol Xl] 25 mg PO DAILY 08/21/17 [History] Nystatin POWDER [Nystop] 1 appl TP BID 08/21/17 [History] Omeprazole [PriLOSEC] 40 mg PO DAILY 08/21/17 [History] PARoxetine HCl [Paroxetine HCl] 50 mg PO DAILY 08/21/17 [History] Ropinirole HCl [Requip] 3 mg PO HS 08/21/17 [History] Tizanidine HCl 4 mg PO TID 08/21/17 [History] Topiramate [Topamax] 200 mg PO BID 08/21/17 [History] 3 Allergy/AdvReac Type Severity Reaction Status Date / Time naproxen [From Naprosyn] Allergy Hives Verified 08/21/17 15:31 Amoxicillin AdvReac Vomiting Verified 08/21/17 15:31 ketorolac [From Toradol] AdvReac Nausea Verified 08/21/17 15:31 tramadol [From Ultram] AdvReac Nausea Verified 08/21/17 15:31 - Meds/Allergy Pre-op Review Medications Reviewed: Yes Allergies Reviewed: Yes Beta Blockers on Current Med List: Yes If Beta Blockers taken, Date/Time (Last Dose taken): 08-25-17 metoprolol xl 8:39 (for some reason held due to npo) Anesthesia Results - Labs 08/26/17 04:55 08/26/17 04:55 - Imaging EKG: report reviewed, image reviewed (SINUS RHYTHM LOW QRS VOLTAGE IN PRECORDIAL LEADS) Additional studies: TTE: Impressions: Technically sub-optimal due to poor echocardiographic windows. LVEF 55-60%. Normal LV chamber size, wall thickness and function. Mild left ventricular diastolic dysfunction. Normal right ventricular structure and function. No evidence of pulmonary hypertension. No significant valvular dysfunction. Suboptimal image quality, but agitated saline study appeared negative for intra-cardiac shunting. Anesthesia Exam Last Vital Signs Temp 98.0 F 08/26/17 07:24 Pulse 77 08/26/17 07:24 Resp 16 08/26/17 07:24 BP 106/55 08/26/17 07:24 Pulse Ox 95 08/26/17 07:24 Weight: 118 kg NPO (# of Hours): > 8 hrs - HEENT Pupil (Motor): Pupils equal, EOMI Mallampati: III Teeth: Poor dentition (very prominent teeth) Oral Opening: Less than or equal to 3 - DIRECTOR OF PUBLIC RELATIONS LOC: Oriented DIRECTOR OF PUBLIC RELATIONS Motor: Deficit RLE - Cardiac Rhythm: Regular Murmur: None - Pulmonary Breath Sounds: bilateral Clear Respiratory Effort: Symmetrical Anesthesia Assess/Plan ASA Score: 3 Modified Dresden Scale for Level of Consciousness: Cooperative, oriented, and tranquil Anesthetic Plan: General, Precautions (C-MAC for intubation due to overbite, prominent dentition, smaller mouth opening) Monitoring Plan: Standard Monitors Recovery Plan: PACU
[2017-08-26] MEDS ORDERED: Bacitracin 50,000 UNIT, Polymyxin B Sulfate 500,000 UNIT, Sodium Chloride IRRigation 1,... IR ONE (13:30)
[2017-08-26] MEDS ORDERED: Clindamycin 900 MG/50 ML 900 MG/50 ML IV.SOLN IVPB ONE (13:48)
[2017-08-26] MEDS ORDERED: *HR* Propofol 200 MG/20 ML VIAL IVP ONE ×2 (14:09→15:51)
[2017-08-26] MEDS ORDERED: *HR* FentaNYL (PF) 100 MCG/2 ML VIAL ONE (14:11)
[2017-08-26] MEDS ORDERED: Dexamethasone 4 MG/ML VIAL ONE (14:42)
[2017-08-26] MEDS ORDERED: Ondansetron 4 MG/2 ML VIAL ONE (14:42)
[2017-08-26] MEDS ORDERED: *HR* Rocuronium Bromide 50 MG/5 ML VIAL ONE (15:06)
[2017-08-26] MEDS ORDERED: *HR* EPINEPHrine 1 MG/ML AMPUL ONE (15:38)
[2017-08-26] MEDS ORDERED: Neostigmine Methylsulfate 3 MG/3 ML SYRINGE ONE (15:38)
[2017-08-26] MEDS ORDERED: Acetaminophen IV 1,000 MG/100 ML INFUS..BTL IVPB ONE (15:49)
[2017-08-26] MEDS ORDERED: *HR* Promethazine 25 MG/ML VIAL IVP PRN (15:49)
[2017-08-26] MEDS ORDERED: *HR* Labetalol 20 MG/4 ML SYRINGE IVP PRN (15:49)
[2017-08-26] MEDS ORDERED: *HR* Morphine 10 MG/ML VIAL ONE (15:50)
--- NOTE | 2017-08-26 16:03 | Orthopedic Operative Note ---
Date of procedure: 08/26/17 Pre-op diagnosis: Lumbar stenosis, lumbar radiculopathy, right foot drop Post-op diagnosis: same Operation/Findings: Laminectomy L4-S1: The patient was brought to the operative theater where he underwent general endotracheal anesthesia. He was given antibiotics prior to the start of the procedure. Compression boots and stockings were used for deep vein thrombosis prophylaxis. The patient was placed prone on a Jarvis table. The back was prepped and draped in the usual sterile fashion. An incision was marked and centered over the L4-S1 interspaces in the midline. We used Bovie cautery to make an incision and then this incision was deepened through the lumbar fascia. Bovie cautery and Christianson elevators were used to reflect the paraspinal musculature to the lateral extent of the L4-5 facet joints bilaterally. Demetria clamps were placed over the spinous processes of L4 and L5 and an intraoperative lateral fluorograph was obtained. A discusssion was held between the radiologist and surgeon who both confirmed we were at the correct operative level. We then removed the supraspinous and interspinous ligaments between L4 and L5 and subsequently removed the ligamentum flavum flavum from its origin on the distal undersurface of the L4 lamina. The ligamentum flavum was noted to be quite hypertrophied as well as the facets were hypertrophied. This required performing a laminectomy of L4 with partial medial facetectomies including undercutting of the facets to decompress the lateral recesses. After the decompression was complete we checked the foramen and the traversing nerve roots and they were found to be free and patent. We copiously irrigated the wound and then closed the wound in layers with 1 Vicryl for the fascia, 2-0 Vicryl for the subcutaneous tissue, and Dermabond was used for skin closure. Sterile dressings were placed over the wound, the patient was turned supine in a hospital bed, and was extubated in the operative theater. All sponge needles and instrument counts were correct at the end of the procedure. The patient tolerated the procedure well without complications. Anesthesia: GETA Surgeon: Angelo Arredondo Jr Was there an senior administrative assistant present: No Estimated blood loss (cc): 30 Specimen: None Condition: stable Disposition: PACU
[2017-08-26] MEDS ORDERED: Albuterol 2.5 MG/3 ML NEBULIZER ONE (16:36)
[2017-08-26] MEDS ORDERED: Albuterol 2.5 MG/3 ML NEBULIZER IH ONE (16:39)
--- NOTE | 2017-08-26 17:06 | Anesthesia Evaluation Post Op ---
Date of Encounter: 08/26/17 Time of Encounter: 17:04 - Vital Signs Vital Signs: Vital Signs/O2 Sat, Most Current Temp Pulse Resp BP Pulse Ox 97.8 F 99 16 101/76 96 08/26/17 16:49 08/26/17 16:49 08/26/17 16:49 08/26/17 16:49 08/26/17 16:49 - Lungs Lungs: Clear Ascult./Percussion - Airway Airway: Non-obstructed - Cardiovascular Regular Rate - Mental Status Mental Status: Asleep with brisk response to light stimulation - Nausea Vomiting Nausea Vomiting: Not Present - Hydration Hydration: Ice chips, Has not voided - Discharge PostOp Status: Transfer Patient to floor
[2017-08-26] MEDS ORDERED: Acetaminophen 325 MG TABLET PO PRN (18:33)
[2017-08-26] MEDS ORDERED: Ondansetron 4 MG/2 ML VIAL IVP PRN (18:33)
[2017-08-26] MEDS ORDERED: Naloxone 0.4 MG/ML INJ IVP PRN (18:33)
[2017-08-26] MEDS: Ringers Solution, Lactated 1,000 ML IVC SCH (21:06)
[2017-08-26] MEDS: *HR* OxyCODONE Immed Rel 5 MG TABLET PO PRN (21:09)
[2017-08-27] MEDS: *HR* HYDROcodone/Acet 5/325 mg TABLET PO PRN ×2 (00:18→07:35)
[2017-08-27] MEDS: *HR* OxyCODONE Immed Rel 5 MG TABLET PO PRN ×2 (02:25→12:52)
[2017-08-27] MEDS ORDERED: *HR* Heparin 5,000 UNIT/ML VIAL SQ SCH (06:00)
[2017-08-27 06:37] LABS: Basophils % 0.2 %; Eosinophils % 0.2 %; Hematocrit 31.9 % (35.3-44.9); Hemoglobin 10.2 g/dL (11.5-15.4); Immature Granulocytes % 0.8 % (0-4); Lymphocytes % 9.3 %; Mean Corpuscular Hemoglobin 29.1 pg (28.0-33.3); Mean Corpuscular Volume 90.9 fL (83.0-100.0); Mean Platelet Volume 9.5 fL (9.4-12.4); Monocytes % 9.2 %; Neutrophils # 8.5 K/mcL (1.6-8.9); Platelet Count 203 K/mcL (140-400); Red Blood Count 3.51 M/mcL (3.82-4.97); Red Cell Distribution Width 13.8 % (11.5-14.5); Segmented Neutrophils % 80.3 %
[2017-08-27 06:53] LABS: BUN/Creatinine Ratio 23 (6-26); Blood Urea Nitrogen 13 mg/dL (6-20); Calcium 8.3 mg/dL (8.6-10.3); Carbon Dioxide 23 mEq/L (23-29); Chloride 109 mEq/L (98-107); Glucose 131 mg/dL (70-105); Osmolality,Calculated 290 (280-300); Potassium 4.2 mEq/L (3.5-5.1); Sodium 139 mEq/L (136-145); eGFR For African Americans > 60 (> 60); eGFR For Non-African Americans > 60 (> 60)
[2017-08-27] MEDS: Ringers Solution, Lactated 1,000 ML IVC SCH (07:36)
--- NOTE | 2017-08-27 12:02 | Discharge Summary ---
- NOTES TO OUTPATIENT PROVIDER Notes to Outpatient Provider: Presented with left leg weakness from neurology office, also reporting pain and right leg. EMG study completed suggesting acute on chronic severe right L5 and S1 radiculopathy, confirmed via MRI. He underwent laminectomy L4-S1 per Dr. Arredondo. Uneventful hospital course, improved strength and range of motion prior to discharge. Instructed to follow- up with PCP within 1 week of discharge. Follow-up appointment set with Dr. Arredondo for 2 weeks. Will be discharged with 7 day supply of narcotics for pain management. Please continue narcotics as needed until follow-up with Dr. Arredondo Date of Encounter: 08/27/17 Time of Encounter: 11:58 - Discharge Diagnosis (1) Lumbar stenosis without neurogenic claudication Priority: Primary Status: Acute Assessment and Plan: Lumbar stenosis without neurogenic claudication Patient was seen by orthopedic spine Dr. Arredondo according to note dated 08/23/17 MRI of the lumbar spine reveals multilevel mild degenerative changes-there is multifactorial stenosis at L4-5 and L5-S1 Status post laminectomy L4-S1 yesterday Patient reports improved strength since surgery Able to ambulate today with assistance of walker Patient would benefit from swing bed facility for further rehabilitation as she does have 14 stairs to contest with at home However, the patient declines to go to swing bed facility reports that she wants [facility] health and physical therapy services I have advised the patient I believe it would be within her best interest to stay an additional day for further evaluation and therapy however, she declines Hemodynamically she remained stable and the patient is improving since laminectomy. No signs of neurogenic claudication. She has been instructed to follow-up with her PCP within 1 week of discharge. Additionally, she has been instructed to return to the ED should she develop loss of bowel or bladder function, decreased range of motion and/or strength in either left or right lower extremity. She is to follow-up with Dr. Arredondo within 2 weeks of discharge. She will discharge with Roxicodone for pain management per ortho (2) Ischemic cerebrovascular accident (CVA) Priority: Secondary Status: Ruled-out Assessment and Plan: patient has Right leg weakness. MRI shows left front lobe infarct which appears to chronic Neurology does not believe that this is a acute cerebrovascular infarct Right leg weakness improving following laminectomy cont with ASa Statin and discharge (3) COPD (chronic obstructive pulmonary disease) Priority: Secondary Status: Acute Qualifiers: COPD type: emphysema Emphysema type: unspecified Qualified Code(s): J43.9 - Emphysema, unspecified (4) Diabetes mellitus Priority: Secondary Status: Acute Assessment and Plan: controlled Continue diet control at this time, monitor per PCP Qualifiers: Diabetes mellitus type: type 2 Diabetes mellitus shelter insulin use: without shelter use Diabetes mellitus complication status: without complication Qualified Code(s): E11.9 - Type 2 diabetes mellitus without complications (5) DVT prophylaxis Priority: Secondary Status: Acute (6) Pain in right lower leg Priority: Secondary Status: Acute Assessment and Plan: Continues to have pain and right lower extremity reports that it is improving since laminectomy Patient is ambulatory with minimal assist and walker Continue oxycodone and discharged for pain management per ortho Hospital course: Ms. Weinstein is a 51 year old female Please see assessment and plan for hospital course Discharge discussed with: patient, family, nurse, social work, case management, property consultant - Time Spent with Patient Total time spent providing and/or coordinating discharge services: Less than 30 minutes - Discharge Medications Prescriptions: OxyCODONE Immed Rel [Roxicodone 5 MG] 5 mg PO Q6HR PRN 7 Days #28 tablet PRN Reason: Severe Pain Home Medications: Furosemide [Lasix] 20 mg PO DAILY 07/06/16 [History] ALPRAZolam [Xanax 0.5 MG Tablet] 0.5 mg PO TID PRN 06/29/17 [History] Doxepin [Sinequan] 100 mg PO HS 06/29/17 [History] Aspirin [Adult Aspirin Regimen] 81 mg PO DAILY 08/21/17 [History] Atorvastatin [Lipitor] 40 mg PO HS 08/21/17 [History] Dicyclomine [Bentyl] 20 mg PO QID 08/21/17 [History] Folic Acid 1 mg PO DAILY 08/21/17 [History] Gabapentin [Neurontin] 300 mg PO TID 08/21/17 [History] Melatonin 9 mg PO HS 08/21/17 [History] Metoprolol Succinate [Toprol Xl] 25 mg PO DAILY 08/21/17 [History] Nystatin POWDER [Nystop] 1 appl TP BID 08/21/17 [History] Omeprazole [PriLOSEC] 40 mg PO DAILY 08/21/17 [History] PARoxetine HCl [Paroxetine HCl] 50 mg PO DAILY 08/21/17 [History] Ropinirole HCl [Requip] 3 mg PO HS 08/21/17 [History] Tizanidine HCl 4 mg PO TID 08/21/17 [History] Topiramate [Topamax] 200 mg PO BID 08/21/17 [History] OxyCODONE Immed Rel [Roxicodone 5 MG] 5 mg PO Q6HR PRN 7 Days #28 tablet [Rx] Allergies/Adverse Reactions: 3 Allergy/AdvReac Type Severity Reaction Status Date / Time naproxen [From Naprosyn] Allergy Hives Verified 08/21/17 15:31 Amoxicillin AdvReac Vomiting Verified 08/21/17 15:31 ketorolac [From Toradol] AdvReac Nausea Verified 08/21/17 15:31 tramadol [From Ultram] AdvReac Nausea Verified 08/21/17 15:31 Date of admission: 08/21/17 23:17 Primary care physician: Danya Adkins Consults: 08/26/17 18:33 Consult to Nurse Navigator [CONS] Routine Comment: spine navigator Consult to Occupational Therapy [CONS] Routine Comment: Evaluate, develop and implement POC Reason for Consult: Postoperative rehabilitation Does patient have active BEDREST order?: No Is patient medically & hemodynamically stable?: Yes Patient assessed for mobility or mobilized this visit?: No Consult to Physical Therapy [CONS] Routine Comment: Evaluate, develop and implement POC Reason for Consult: Postoperative rehabilitation Does patient have active BEDREST order?: No Is patient medically & hemodynamically stable?: Yes Patient assessed for mobility or mobilized this visit?: No Discharging clinician: Mustapha Hui Anticipated date of discharge: 08/27/17 - Constitutional Vitals: Temp Pulse Resp BP Pulse Ox 98.8 F 18 98 95/58 98 08/27/17 06:57 08/27/17 06:57 08/27/17 06:57 08/27/17 06:57 08/27/17 07:56 General appearance: Present: A&O X 3, no acute distress, answers questions appropriately - Head Head exam: Present: atraumatic, normocephalic - Eye Eye exam: Present: PERRL, conjuntiva pink, sclera anicteric Pupils: Present: PERRL - Neck Neck exam general surgery: Present: supple, trachea midline. Absent: lymphadenopathy - Respiratory Respiratory exam: Present: CTAB. Absent: accessory muscle use, rales, rhonchi, wheezes - Cardiovascular Cardiovascular exam: Present: RRR, +S1, +S2. Absent: diastolic murmur, gallop, rubs, systolic murmur - GI/Abdominal GI/Abdominal exam: Present: normal bowel sounds, soft, no peritoneal signs. Absent: distended, tenderness - Extremities Exam Extremities exam: Present: warm, radial pulses palpable and symmetrical. Absent : calf tenderness, cyanotic, pedal edema - Neurological Exam Neurological exam: Present: CN II-XII intact, oriented X3, no focal deficits. Absent: pronater drift, facial droop, speech deficit - Skin Skin exam: Present: dry, intact - Patient Status Disposition: Home Health Service Condition: Fair Overall status at discharge: patient is progressing back to baseline - Discharge Instructions Instructions: Diabetes Mellitus Type 2 in Adults (DC) Follow Up With: Callie Kwong PAC [Physician Core Driller] - 09/10/17 8:00 am Danya Adkins CNP [Primary Care Provider] - 08/29/17 8:15 am - Diet and Activity Activity: ambulate only with your walker, as per physical therapy Diet: advance to your usual diet
[2017-08-27 12:06] VITALS: BP 130/75
--- NOTE | 2017-08-27 12:16 | Physician Discharge Referral ---
Home Health/Hosp Referral Info Transfer to: Home Health Provider in Charge Post Discharge: PCP - Diagnosis (1) Lumbar stenosis without neurogenic claudication Priority: Primary Status: Acute (2) Ischemic cerebrovascular accident (CVA) Priority: Secondary Status: Ruled-out (3) COPD (chronic obstructive pulmonary disease) Priority: Secondary Status: Acute (4) Diabetes mellitus Priority: Secondary Status: Acute (5) DVT prophylaxis Priority: Secondary Status: Acute (6) Pain in right lower leg Priority: Secondary Status: Acute - Respiratory Orders Smoking Cessation: Smoking cessation has been advised. For more information, call the [place] Tobacco Quit Line at 8-216-VBSB-NOW. - Diet/Nutrition Diet/Nutrition Orders: Regular (Regular/diabetic diet) - Activity Activity Orders: Ambulate, Walker - Services Needed Following services are medically necessary services: Nursing, Home Health Aide, Physical Therapy, Occupational Therapy - Transfer Medications Prescriptions: OxyCODONE Immed Rel [Roxicodone 5 MG] 5 mg PO Q6HR PRN 7 Days #28 tablet PRN Reason: Severe Pain Home Medications: Furosemide [Lasix] 20 mg PO DAILY 07/06/16 [History] ALPRAZolam [Xanax 0.5 MG Tablet] 0.5 mg PO TID PRN 06/29/17 [History] Doxepin [Sinequan] 100 mg PO HS 06/29/17 [History] Aspirin [Adult Aspirin Regimen] 81 mg PO DAILY 08/21/17 [History] Atorvastatin [Lipitor] 40 mg PO HS 08/21/17 [History] Dicyclomine [Bentyl] 20 mg PO QID 08/21/17 [History] Folic Acid 1 mg PO DAILY 08/21/17 [History] Gabapentin [Neurontin] 300 mg PO TID 08/21/17 [History] Melatonin 9 mg PO HS 08/21/17 [History] Metoprolol Succinate [Toprol Xl] 25 mg PO DAILY 08/21/17 [History] Nystatin POWDER [Nystop] 1 appl TP BID 08/21/17 [History] Omeprazole [PriLOSEC] 40 mg PO DAILY 08/21/17 [History] PARoxetine HCl [Paroxetine HCl] 50 mg PO DAILY 08/21/17 [History] Ropinirole HCl [Requip] 3 mg PO HS 08/21/17 [History] Tizanidine HCl 4 mg PO TID 08/21/17 [History] Topiramate [Topamax] 200 mg PO BID 08/21/17 [History] OxyCODONE Immed Rel [Roxicodone 5 MG] 5 mg PO Q6HR PRN 7 Days #28 tablet [Rx] Allergies/Adverse Reactions: 3 Allergy/AdvReac Type Severity Reaction Status Date / Time naproxen [From Naprosyn] Allergy Hives Verified 08/21/17 15:31 Amoxicillin AdvReac Vomiting Verified 08/21/17 15:31 ketorolac [From Toradol] AdvReac Nausea Verified 08/21/17 15:31 tramadol [From Ultram] AdvReac Nausea Verified 08/21/17 15:31 Certification: Further, I certify that my clinical findings support that this patient is homebound (i.e. absences from home require considerable and taxing effort and are for medical reasons or faith services or infrequently or short duration when for other reasons) because: Homebound Reason: Patient requires assistance of a person or device to safely leave home Attestation: My signature below is to certify that this patient is under my care and that I, or nurse practitioner, or a physician's shop assistant working with me, has a face-to -face encounter with this patient.
--- NOTE | 2017-08-27 15:51 | Orthopedics Progress Note ---
Date of Encounter: 08/27/17 Time of Encounter: 08:45 - Assessment and Plan (1) Lumbar radiculopathy Status: Chronic (2) Right foot drop Status: Chronic (3) Lumbar stenosis Status: Chronic Qualifiers: Neurogenic claudication status: unspecified Qualified Code(s): M48.061 - Spinal stenosis, lumbar region without neurogenic claudication (4) Status post laminectomy Status: Acute Subjective Principal diagnosis: difficulty walking Interval history: POD#1 Date of procedure: 08/26/17 Pre-op diagnosis: Lumbar stenosis, lumbar radiculopathy, right foot drop Post-op diagnosis: same Operation/Findings: Laminectomy L4-S1 The patient is without complaints. Patient's 2 sons are at bedside. They state they live with her and care for her. Afebrile vital signs are stable. Patient continues on 2 L of oxygen via nasal cannula. Patient unable to reposition for incision examination at this time. Pulses intact to bilateral lower extremities at posterior tibial. Right foot drop continues. No calf tenderness to palpation bilaterally. Sensation is intact bilaterally to lower extremities. Assessment: Stable postoperative laminectomy Right foot drop - ongoing Plan: Reviewed postoperative restrictions and precautions including avoid bending or twisting at the waist, lifting nothing heavier than 10 pounds, and no soaking a pulse of her hot tub for the next 2 weeks until released to do so by our office. Patient verbalized understanding. Patient has been using a walker for quite some time. I encouraged her to continue using the walker secondary to her continued foot drop. Mobilize with therapy - would like their recommendations secondary to patient's continued foot drop. Will fit patient with an AFO to wear with ambulation to hopefully reduce patient's likelihood of fall as the foot drop she and her sons both state has significantly contributed to her repetitive falls. Continue analgesics as needed Discharge planning - awaiting therapy recommendations; patient does state that she currently has home health Re: On board and would like to return home with home health therapy. Patient doing well from orthopedic standpoint. Once AFO education and application administered will sign off and expect to see her following up in the office as an outpatient as scheduled. Please reconsult for any further questions or concerns. Objective Vital signs: Vital Signs Temp Pulse Resp BP Pulse Ox 08/27/17 12:02 97.6 F 94 18 130/75 99 08/27/17 07:56 98 08/27/17 06:57 98.8 F 18 98 95/58 08/27/17 03:18 97.6 F 93 16 95/58 98 08/26/17 23:26 89 16 100/68 97 08/26/17 20:55 98.3 F 87 14 101/60 97 08/26/17 20:00 97.7 F 89 14 108/62 97 08/26/17 19:00 90 81/57 93 08/26/17 18:32 92 94/64 98 08/26/17 18:02 89 88/55 94 08/26/17 17:47 89 102/68 95 08/26/17 17:32 92 119/87 96 08/26/17 17:17 97.8 F 95 18 108/63 95 08/26/17 16:59 97.8 F 100 16 103/79 96 08/26/17 16:49 97.8 F 99 16 101/76 96 08/26/17 16:39 96 16 90/70 100 08/26/17 16:29 97 16 93/81 97 08/26/17 16:19 99.9 F H 94 18 130/91 97 Intake and Output 08/26/17 08/27/17 08/27/17 23:59 07:59 15:59 Intake Total 1000 / 1000 1150 / 1150 Output Total 30 30 900 / 900 Balance -30 / -30 100 / 100 1150 / 1150 Intake: IV Fluids 1000 / 1000 550 / 550 Lactated Ringers 1,000 ML @ 100 1000 / 1000 550 / 550 mls/hr IVC .Q10H [facility] Rx#: [id number] Oral 600 / 600 Output: Urine 900 / 900 Estimated Blood Loss 30 30 Other: Meal Breakfast Percent of Meal Consumed 100% Weight 123.7 kg Blood Glucose* 233 135 114 Patient Weight 08/27/17 23:59 Weight 123.7 kg - Labs CBC & BMP: 08/27/17 06:19 08/27/17 06:19 Labs: Abnormal lab results RBC 3.51 M/mcL (3.82-4.97) L 08/27/17 06:19 Hgb 10.2 g/dL (11.5-15.4) L D 08/27/17 06:19 Hct 31.9 % (35.3-44.9) L 08/27/17 06:19 Chloride 109 mEq/L (98-107) H 08/27/17 06:19 Creatinine 0.57 mg/dL (0.60-1.20) L 08/27/17 06:19 Glucose 131 mg/dL (70-105) H 08/27/17 06:19 POC Glucose 233 mg/dL (70-99) H 08/26/17 20:58 Calcium 8.3 mg/dL (8.6-10.3) L 08/27/17 06:19 LDL Cholesterol, Calc 110 mg/dL (0-99) H 08/22/17 01:11 HDL Cholesterol 36 mg/dL (40-59) L 08/22/17 01:11 Consult Discharge Plan - Plan Instructions: Diabetes Mellitus Type 2 in Adults (DC), Chronic Obstructive Pulmonary Disease (DC) Referrals: Callie Kwong PAC [Physician Digital Developer] - 09/10/17 8:00 am Danya Adkins CNP [Primary Care Provider] - 08/29/17 8:15 am Prescriptions: OxyCODONE Immed Rel [Roxicodone 5 MG] 5 mg PO Q6HR PRN 7 Days #28 tablet PRN Reason: Severe Pain
== END 2017-08-27 14:30 | disposition home health service (06) | DRG 310 ==
LOC: 3ANU 11:34 → EMEROO 11:34 → 3BNU 18:22
PROVIDERS: ADMIT Internal Medicine; ATTEND Internal Medicine

== ENCOUNTER 2017-09-02 16:24 | Observation (INO) ==
[2017-09-02] MEDS ORDERED: Gadolinium Contrast Agent (WT Based) IV PRN (16:29)
[2017-09-02] MEDS ORDERED: *HR* FentaNYL (PF) 100 MCG/2 ML VIAL IVP ONE ×2 (16:31→18:06)
--- NOTE | 2017-09-02 16:36 | Emergency Department Note ---
Disposition Clinical Impression: Abscess in epidural space of lumbar spine Disposition: Admitted As Inpatient Condition: Undetermined Forms: ED Satisfaction Letter Time of Disposition: 16:30 General Adult HPI - General Chief complaint: ED Back Pain/Injury Stated complaint: Back Pain Time Seen by Provider: 09/02/17 16:27 Source: patient, EMS Mode of arrival: EMS Limitations: no limitations Nursing Notes Reviewed: Yes Vital Signs Reviewed: Yes - History of Present Illness HPI Narrative: 51-year-old female with history of CVA, diabetes, hyperlipidemia, hypertension, arrives to the emergency department status post 7 days from a laminectomy of L4- S1 by Dr. Arnulfo rothman at [facility]. The patient has noted that she has been experiencing worsening pain over the past couple days as well as yellow purulent discharge from surgical site combined with now new urinary incontinence. The patient states that she has no paresthesias associated with this. The patient does state that this urinary incontinence is new. Her pain is nonradiating and is primarily located in her lumbar spine. She states it is located around her surgical site. The patient also admits to subjective fevers as well. She denies any abdominal pain, nausea, vomiting, diarrhea, chest pain , dyspnea. She is uncomfortable on examination. Patient is able to ambulate on examination. Pain Scale: 10 - Related Data Home Medications Medication Instructions Recorded Confirmed Furosemide [Lasix] 20 mg PO DAILY 07/06/16 08/21/17 ALPRAZolam [Xanax 0.5 MG Tablet] 0.5 mg PO TID PRN 06/29/17 08/21/17 Doxepin [Sinequan] 100 mg PO HS 06/29/17 08/21/17 Aspirin [Adult Aspirin Regimen] 81 mg PO DAILY 08/21/17 08/21/17 Atorvastatin [Lipitor] 40 mg PO HS 08/21/17 08/21/17 Dicyclomine [Bentyl] 20 mg PO QID 08/21/17 08/21/17 Folic Acid 1 mg PO DAILY 08/21/17 08/21/17 Gabapentin [Neurontin] 300 mg PO TID 08/21/17 08/21/17 Melatonin 9 mg PO HS 08/21/17 08/21/17 Metoprolol Succinate [Toprol Xl] 25 mg PO DAILY 08/21/17 08/21/17 Nystatin POWDER [Nystop] 1 appl TP BID 08/21/17 08/21/17 Omeprazole [PriLOSEC] 40 mg PO DAILY 08/21/17 08/21/17 PARoxetine HCl [Paroxetine HCl] 50 mg PO DAILY 08/21/17 08/21/17 Ropinirole HCl [Requip] 3 mg PO HS 08/21/17 08/21/17 Tizanidine HCl 4 mg PO TID 08/21/17 08/21/17 Topiramate [Topamax] 200 mg PO BID 08/21/17 08/21/17 Previous Rx's Medication Instructions Recorded OxyCODONE Immed Rel [Roxicodone 5 5 mg PO Q6HR PRN 7 Days #28 tablet 08/27/17 MG] Allergies Allergy/AdvReac Type Severity Reaction Status Date / Time naproxen [From Naprosyn] Allergy Hives Verified 08/21/17 15:31 Amoxicillin AdvReac Vomiting Verified 08/21/17 15:31 ketorolac [From Toradol] AdvReac Nausea Verified 08/21/17 15:31 tramadol [From Ultram] AdvReac Nausea Verified 08/21/17 15:31 All systems ED: reviewed and negative except as stated. Constitutional: Reports: fever, chills, weakness ENT ED: Denies: congestion Cardiovascular: Denies: chest pain Respiratory: Denies: dyspnea Gastrointestinal: Reports: nausea. Denies: abdominal pain, vomiting, diarrhea, hematochezia Genitourinary: Denies: urgency, dysuria Musculoskeletal: Reports: back pain. Denies: arthralgia, myalgia Integumentary: Denies: rash Neurological: Denies: headache, numbness, paresthesias Past Medical History - Past Medical History Attestation: Yes The following information was validated with the patient. Source: patient, old records reviewed Medical history: Reports: asthma, COPD, diabetes, hypertension Surgical history: Reports: appendectomy, , cholecystectomy, hysterectomy Psychiatric history: Reports: anxiety, depression, panic disorder GENETIC SUPERVISOR history: Reports: no GENETIC SUPERVISOR history - Social History Smoking Status: Never smoker Smokeless Tobacco Status: No Alcohol use: Reports: none Drug use: Reports: none Physical Exam - General Limitations: no limitations General appearance: alert, in no apparent distress - Head Head exam: atraumatic, normocephalic, normal inspection - Eye Eye exam: Present: normal appearance, PERRL, EOMI - ENT ENT exam: normal exam, normal oropharynx, mucous membranes moist - Neck Neck exam: Present: normal inspection, full ROM, trachea midline - Chest Chest inspection: Present: normal inspection, symmetric chest wall rise - Respiratory Respiratory exam: Present: normal lung sounds bilaterally - Cardiovascular Cardiovascular exam: Present: regular rate, normal rhythm, normal heart sounds - Abdominal Exam Abdominal exam: Present: soft, Non-Tender. Absent: tenderness, distention, guarding, rebound, rigidity - Extremities Exam Extremities exam: Present: normal inspection, full ROM. Absent: tenderness, pedal edema - Back Exam Back exam: Present: full ROM, tenderness (L5), other (Surgical site mildly erythematous, with purulent discharge) - Neurological Exam Neurological exam: Present: alert, oriented X3, CN II-XII intact - Expanded Neurological Exam Patient oriented to: Present: person, place, time Speech: Present: fluid speech Cranial nerves: EOM function (II, III, IV, ): Normal, facial sensation (V): Normal, facial palsy (VII): Normal Motor strength - LUE: 4/5 Motor strength - RUE: 4/5 Motor strength - LLE: 4/5 Motor strength - RLE: 4/5 Sensory exam upper extremity: light touch: Normal Sensory exam lower extremity: light touch: Normal Coma Scale Eye Opening: Spontaneous Coma Scale Motor Response: Obeys Commands Coma Scale Verbal Response: Oriented Coma Scale Total: 15 - Skin Skin exam: Present: warm, dry, normal color Course Vital Signs Temperature 99.2 F 09/02/17 16:27 Pulse Rate 82 09/02/17 16:27 Respiratory Rate 15 09/02/17 16:27 Blood Pressure 123/81 09/02/17 16:27 O2 Sat by Pulse Oximetry 98 09/02/17 16:27 Temperature 99.2 F 09/02/17 16:27 Pulse Rate 82 09/02/17 16:27 Respiratory Rate 15 09/02/17 16:27 Blood Pressure 123/81 09/02/17 16:27 O2 Sat by Pulse Oximetry 98 09/02/17 16:27 Oxygen Delivery Oxygen Delivery Room Air Medical Decision Making - MDM Narrative Medical decision making narrative: Patient's workup in the emergency department demonstrates phlegmon versus abscess in the area of surgical intervention. The patient has been experiencing subjective fevers. The patient has no leukocytosis. Given the patient's findings, Dr. Arredondo in surgery was notified. He requested admission to his service. He will see the patient this evening. No further questions or concerns noted at this time. Patient made aware and agrees to plan. No further questions or concerns noted this time. - Medical Records Medical records reviewed: Yes I reviewed the patient's medical records. - Lab Data Lab results reviewed: Yes I reviewed the patient's lab results. Result diagrams: 09/02/17 16:35 09/02/17 16:35 Lab Results 09/02/17 09/02/17 Range/Units 16:35 16:35 WBC 6.8 (4.3-11.1) K/mcL RBC 3.28 L (3.82-4.97) M/mcL Hgb 9.6 L (11.5-15.4) g/dL Hct 30.1 L (35.3-44.9) % MCV 91.8 (83.0-100.0) fL MCH 29.3 (28.0-33.3) pg MCHC 31.9 (31.6-35.5) g/dL RDW 14.2 (11.5-14.5) % Plt Count 275 (140-400) K/mcL MPV 8.8 L (9.4-12.4) fL Immature Gran % 0.9 (0-4) % Seg Neutrophils % 70.1 % Lymphocytes % 15.4 % Monocytes % 7.2 % Eosinophils % 6.1 % Basophils % 0.3 % Neutrophils # 4.8 (1.6-8.9) K/mcL Lymphocytes # 1.1 (0.6-4.6) K/mcL Monocytes # 0.5 (0.0-1.3) K/mcL Eosinophils # 0.4 (0.0-0.6) K/mcL Basophils # 0.0 (0.0-0.2) K/mcL Sodium 140 (136-145) mEq/L Potassium 3.5 (3.5-5.1) mEq/L Chloride 110 H (98-107) mEq/L Carbon Dioxide 20 L (23-29) mEq/L BUN 7 (6-20) mg/dL Creatinine 0.58 L (0.60-1.20) mg/dL Est GFR ( Amer) > 60 (> 60) Est GFR (Non-Af Amer) > 60 (> 60) BUN/Creatinine Ratio 12 (6-26) Glucose 140 H (70-105) mg/dL Calculated Osmolality 290 (280-300) Calcium 8.5 L (8.6-10.3) mg/dL - Radiology Data Radiology results reviewed: Yes I reviewed the patient's radiology results. Lumbar Spine MRI 09/02/17 16:29 IMPRESSION: Postop changes There is multifocal heterogeneous signal and enhancement in the posterior aspect of the canal between L4-5 in the S1 level. Findings are concerning for a developing epidural phlegmon or small epidural abscesses. Additional postop changes are noted in the posterior soft tissues with edema and fluid noted along the surgical tract and multifocal adjacent enhancement. There is no defined abscess in the posterior soft tissues. Multifocal degenerative disc disease is noted, as described. D/ / Angelo Hobbs / Angelo Hobbs Interpreting Provider: Angelo Hobbs Attestation Statement - Attestation Attestation: I, Pablo Sainz, examined this patient and my medical decision-making was reviewed with the DIESEL TRAILER MECHANIC/PA/Advanced Practice Nurse/Resident Physician. I agree with the documented findings, disposition and treatment plan as described except to the extent set forth below. 51-year-old female presents emergency Department with concerns of worsening back pain. Patient had a surgery with Dr. Arredondo within the past 2 weeks, she noticed increased pain of the back with ambulation and with movement. She noticed discharge of purulent material over the past few days from the surgical site. Within the past 24 hours she reported urinary incontinence. Denies recent trauma. MRI shows phlegmon of the posterior canal consistent with epidural abscess. Patient's pain was controlled with IV pain medication emergency department. Patient will be admitted to Dr. Arredondo for further care and evaluation.
[2017-09-02 16:54] LABS: Basophils % 0.3 %; Eosinophils # 0.4 K/mcL (0.0-0.6); Eosinophils % 6.1 %; Hematocrit 30.1 % (35.3-44.9); Hemoglobin 9.6 g/dL (11.5-15.4); Immature Granulocytes % 0.9 % (0-4); Lymphocytes # 1.1 K/mcL (0.6-4.6); Lymphocytes % 15.4 %; Mean Corpuscular HGB Conc 31.9 g/dL (31.6-35.5); Mean Corpuscular Hemoglobin 29.3 pg (28.0-33.3); Mean Corpuscular Volume 91.8 fL (83.0-100.0); Mean Platelet Volume 8.8 fL (9.4-12.4); Monocytes # 0.5 K/mcL (0.0-1.3); Monocytes % 7.2 %; Neutrophils # 4.8 K/mcL (1.6-8.9); Platelet Count 275 K/mcL (140-400); Red Blood Count 3.28 M/mcL (3.82-4.97); Red Cell Distribution Width 14.2 % (11.5-14.5); Segmented Neutrophils % 70.1 %
[2017-09-02 17:04] LABS: BUN/Creatinine Ratio 12 (6-26); Blood Urea Nitrogen 7 mg/dL (6-20); Calcium 8.5 mg/dL (8.6-10.3); Carbon Dioxide 20 mEq/L (23-29); Chloride 110 mEq/L (98-107); Glucose 140 mg/dL (70-105); Osmolality,Calculated 290 (280-300); Potassium 3.5 mEq/L (3.5-5.1); Sodium 140 mEq/L (136-145); eGFR For African Americans > 60 (> 60); eGFR For Non-African Americans > 60 (> 60)
[2017-09-02] MEDS ORDERED: Cefepime HCl 1,000 MG in Water for inj. (sterile) 20 ML 10 ML IVP STA (18:45)
[2017-09-02 19:21] LABS: Prothrombin Time 11.2 Seconds (9.4-12.1)
[2017-09-02 19:24] LABS: Activated Partial Thrombo Time 31.7 Seconds (26.0-36.0)
[2017-09-03] MEDS ORDERED: ALPRAZolam 0.5 MG TABLET PO PRN (01:12)
[2017-09-03] MEDS: Gabapentin 300 MG CAPSULE PO SCH ×4 (02:00→20:40)
[2017-09-03] MEDS: *HR* OxyCODONE Immed Rel 5 MG TABLET PO PRN ×4 (02:00→21:39)
[2017-09-03] MEDS: tiZANidine 4 MG TABLET PO SCH ×4 (02:00→20:41)
[2017-09-03] MEDS: Melatonin 3 MG TABLET PO SCH ×2 (02:00→20:40)
[2017-09-03] MEDS: Topiramate 100 MG TABLET PO SCH ×2 (07:55→20:40)
[2017-09-03] MEDS: Furosemide 20 MG TABLET PO SCH (07:56)
[2017-09-03] MEDS: Metoprolol XL (24 HR) Succ 25 MG TAB.ER.24H PO SCH (07:56)
[2017-09-03] MEDS: Aspirin Enteric Coated 81 MG Tablet PO SCH (07:56)
[2017-09-03] MEDS: Folic Acid 1 MG TABLET PO SCH (07:56)
[2017-09-03] MEDS: Nystatin POWDER 30 GM BOTTLE TP SCH ×2 (08:02→23:05)
[2017-09-04] MEDS: *HR* OxyCODONE Immed Rel 5 MG TABLET PO PRN ×3 (05:03→20:37)
[2017-09-04] MEDS: Aspirin Enteric Coated 81 MG Tablet PO SCH (09:38)
[2017-09-04] MEDS: tiZANidine 4 MG TABLET PO SCH ×3 (09:38→20:38)
[2017-09-04] MEDS: Topiramate 100 MG TABLET PO SCH ×2 (09:38→20:38)
[2017-09-04] MEDS: Furosemide 20 MG TABLET PO SCH (09:39)
[2017-09-04] MEDS: Folic Acid 1 MG TABLET PO SCH (09:39)
[2017-09-04] MEDS: Gabapentin 300 MG CAPSULE PO SCH ×3 (09:39→20:38)
[2017-09-04] MEDS: Metoprolol XL (24 HR) Succ 25 MG TAB.ER.24H PO SCH (09:39)
[2017-09-04] MEDS: Nystatin POWDER 30 GM BOTTLE TP SCH ×2 (09:39→20:39)
--- NOTE | 2017-09-04 16:58 | Orthopedics Progress Note ---
Date of Encounter: 09/03/17 Time of Encounter: 08:20 - Assessment and Plan (1) Wound drainage Current Visit: Yes Status: Acute (2) Right foot drop Current Visit: No Status: Chronic (3) Status post laminectomy Current Visit: No Status: Acute Subjective Principal diagnosis: wound drainage Interval history: Patient is postoperative day #9 status post Date of procedure: 08/26/17 Pre-op diagnosis: Lumbar stenosis, lumbar radiculopathy, right foot drop Post-op diagnosis: same Operation/Findings: Laminectomy L4-S1 She presented to the ED on 09/02/17 for foul-smelling drainage and wound concern for infection. Patient had laminectomy on 08/26/17 and was discharged home with her establish home health care Company. Patient was seen by Dr. Arredondo in the hospital after readmission. Wound was not found to have appearance of infection however MRI was concerning for developing infection. He was revealed that patient had not remove the dressing that had been placed postoperatively and had been showering with the same dressing on and leaving the dressing wet. Dr. Arredondo recommended iodine washes, thorough cleansing of the patient's body habitus, as well as dressing changes to monitor for saturation and abscess.. The patient is without complaints. She states that she continues to have pain in her back and legs since surgery. Afebrile vital signs are stable. Laboratory was reviewed which does not appear to reveal an acute abnormality. Patient unwilling to reposition for incision examination.. Neurovascularly intact with regard to left lower extremity. Foot drop to the right foot is ongoing. She does have improved motion of her toes during this admission. Assessment: Wound drainage after laminectomy Plan: Reviewed postoperative restrictions and precautions. Patient appeared to verbalize understanding. Uncertain whether patient presents with AFO that was fitted at last admission. Mobilize with therapy Continue analgesics as needed Discharge planning - awaiting therapy and social work recommendations; concern exists regarding instructions given to home health care Company for patient discharge during the last admission. Social work coordinating these services to figure out if adequate dressing changes and wound monitoring can be completed by her current health care Company or if she requires SNF/ECF or other home healthcare agency services. Continue dressing changes as per Dr. Arredondo's request. Objective Vital signs: Vital Signs Temp Pulse Resp BP Pulse Ox 09/04/17 15:48 98.7 F 76 18 99/60 98 09/04/17 10:45 98.1 F 79 18 116/74 95 09/04/17 06:33 98.0 F 70 18 98/62 94 09/03/17 23:46 98.0 F 74 16 92/54 96 09/03/17 19:26 97.8 F 73 12 109/69 97 Intake and Output 09/04/17 09/04/17 09/04/17 07:59 15:59 23:59 Intake Total 480 / 480 Balance 480 / 480 Intake: Oral 480 / 480 Other: Meal Lunch Percent of Meal Consumed 75% # Voids 1 # Bowel Movements 1 - Labs CBC & BMP: 09/02/17 16:35 09/02/17 16:35 Labs: Abnormal lab results RBC 3.28 M/mcL (3.82-4.97) L 09/02/17 16:35 Hgb 9.6 g/dL (11.5-15.4) L 09/02/17 16:35 Hct 30.1 % (35.3-44.9) L 09/02/17 16:35 MPV 8.8 fL (9.4-12.4) L 09/02/17 16:35 Chloride 110 mEq/L (98-107) H 09/02/17 16:35 Carbon Dioxide 20 mEq/L (23-29) L 09/02/17 16:35 Creatinine 0.58 mg/dL (0.60-1.20) L 09/02/17 16:35 Glucose 140 mg/dL (70-105) H 09/02/17 16:35 Calcium 8.5 mg/dL (8.6-10.3) L 09/02/17 16:35 Consult Discharge Plan - Plan Referrals: Danya Adkins, SECONDARY SPECIAL EDUCATION TEACHER [Primary Care Provider] -
--- NOTE | 2017-09-04 17:04 | Orthopedics Progress Note ---
Date of Encounter: 09/04/17 Time of Encounter: 08:40 - Assessment and Plan (1) Wound drainage Current Visit: Yes Status: Acute (2) Right foot drop Current Visit: No Status: Chronic (3) Status post laminectomy Current Visit: No Status: Acute Subjective Principal diagnosis: wound drainage Interval history: Patient is postoperative day #9 status post Date of procedure: 08/26/17 Pre-op diagnosis: Lumbar stenosis, lumbar radiculopathy, right foot drop Post-op diagnosis: same Operation/Findings: Laminectomy L4-S1 She presented to the ED on 09/02/17 for foul-smelling drainage and wound concern for infection. Patient had laminectomy on 08/26/17 and was discharged home with her establish home health care Company. Patient was seen by Dr. Arredondo in the hospital after readmission. Wound was not found to have appearance of infection however MRI was concerning for developing infection. He was revealed that patient had not remove the dressing that had been placed postoperatively and had been showering with the same dressing on and leaving the dressing wet. Dr. Arredondo recommended iodine washes, thorough cleansing of the patient's body habitus, as well as dressing changes to monitor for saturation and abscess. Per nursing and Dr. Arredondo dressing has remained dry since last change. The patient is without complaints. She states that she continues to have pain in her back and legs since surgery. Afebrile vital signs are stable. Laboratory was reviewed which does not appear to reveal an acute abnormality. Patient unwilling to reposition for incision examination.. Neurovascularly intact with regard to left lower extremity. Foot drop to the right foot is improved today with patient able to dorsiflex the right ankle approximately 5- 10 degrees. Sensation to the right lower extremity and left lower extremity is intact. Posterior tibial Pulses are intact to right lower extremity. Assessment: Wound drainage after laminectomy Plan: Reviewed postoperative restrictions and precautions. Patient appeared to verbalize understanding. Uncertain whether patient presents with AFO that was fitted at last admission. Mobilize with therapy Continue analgesics as needed Discharge planning - awaiting therapy and social work recommendations; concern exists regarding instructions given to home health care Company for patient discharge during the last admission. Social work coordinating these services to figure out if adequate dressing changes and wound monitoring can be completed by her current health care Company or if she requires SNF/ECF or other home healthcare agency services. Continue dressing changes as per Dr. Arredondo's request. Objective Vital signs: Vital Signs Temp Pulse Resp BP Pulse Ox 09/04/17 15:48 98.7 F 76 18 99/60 98 09/04/17 10:45 98.1 F 79 18 116/74 95 09/04/17 06:33 98.0 F 70 18 98/62 94 09/03/17 23:46 98.0 F 74 16 92/54 96 09/03/17 19:26 97.8 F 73 12 109/69 97 Intake and Output 09/04/17 09/04/17 09/04/17 07:59 15:59 23:59 Intake Total 480 / 480 Balance 480 / 480 Intake: Oral 480 / 480 Other: Meal Lunch Percent of Meal Consumed 75% # Voids 1 # Bowel Movements 1 - Labs CBC & BMP: 09/02/17 16:35 09/02/17 16:35 Labs: Abnormal lab results RBC 3.28 M/mcL (3.82-4.97) L 09/02/17 16:35 Hgb 9.6 g/dL (11.5-15.4) L 09/02/17 16:35 Hct 30.1 % (35.3-44.9) L 09/02/17 16:35 MPV 8.8 fL (9.4-12.4) L 09/02/17 16:35 Chloride 110 mEq/L (98-107) H 09/02/17 16:35 Carbon Dioxide 20 mEq/L (23-29) L 09/02/17 16:35 Creatinine 0.58 mg/dL (0.60-1.20) L 09/02/17 16:35 Glucose 140 mg/dL (70-105) H 09/02/17 16:35 Calcium 8.5 mg/dL (8.6-10.3) L 09/02/17 16:35 Consult Discharge Plan - Plan Referrals: Danya Adkins, JORGE [Primary Care Provider] -
[2017-09-04] MEDS: Melatonin 3 MG TABLET PO SCH (20:38)
[2017-09-05] MEDS: *HR* OxyCODONE Immed Rel 5 MG TABLET PO PRN ×3 (03:19→17:34)
[2017-09-05] MEDS: Folic Acid 1 MG TABLET PO SCH (08:27)
[2017-09-05] MEDS: Furosemide 20 MG TABLET PO SCH (08:27)
[2017-09-05] MEDS: tiZANidine 4 MG TABLET PO SCH ×2 (08:27→16:01)
[2017-09-05] MEDS: Topiramate 100 MG TABLET PO SCH (08:27)
[2017-09-05] MEDS: Aspirin Enteric Coated 81 MG Tablet PO SCH (08:27)
[2017-09-05] MEDS: Metoprolol XL (24 HR) Succ 25 MG TAB.ER.24H PO SCH (08:27)
[2017-09-05] MEDS: Gabapentin 300 MG CAPSULE PO SCH ×2 (08:27→16:01)
[2017-09-05] MEDS: Nystatin POWDER 30 GM BOTTLE TP SCH (08:28)
--- NOTE | 2017-09-05 08:54 | Orthopedics Progress Note ---
Date of Encounter: 09/05/17 Time of Encounter: 08:51 - Assessment and Plan (1) Wound drainage Current Visit: Yes Status: Acute (2) Right foot drop Current Visit: No Status: Chronic (3) Status post laminectomy Current Visit: No Status: Acute Subjective Principal diagnosis: wound drainage Interval history: Patient is postoperative day #10 status post Date of procedure: 08/26/17 Pre-op diagnosis: Lumbar stenosis, lumbar radiculopathy, right foot drop Post-op diagnosis: same Operation/Findings: Laminectomy L4-S1 She presented to the ED on 09/02/17 for foul-smelling drainage and wound concern for infection. Patient had laminectomy on 08/26/17 and was discharged home with her [facility] care [facility]. Patient was seen by Dr. Arredondo in the hospital after readmission. Wound was not found to have appearance of infection however MRI was concerning for developing infection. He was revealed that patient had not remove the dressing that had been placed postoperatively and had been showering with the same dressing on and leaving the dressing wet. Dr. Arredondo recommended iodine washes, thorough cleansing of the patient's body habitus, as well as dressing changes to monitor for saturation and abscess. The patient is without complaints. She states that she feels pretty well today. Afebrile vital signs are stable. Laboratory was reviewed which does not appear to reveal an acute abnormality. Patient cooperative with incision inspection - reveals serous drainage appx 25%. Neurovascularly intact with regard to left lower extremity. Foot drop to the right foot is improved today with patient able to dorsiflex the right ankle approximately 5-10 degrees. Sensation to the right lower extremity and left lower extremity is intact. Posterior tibial Pulses are intact to right lower extremity. Assessment: Wound drainage after laminectomy Plan: Reviewed postoperative restrictions and precautions. Patient verbalized understanding. AFO requested again with fitting as there have been issues with patient applying apparently Mobilize with therapy Continue analgesics as needed Discharge planning - awaiting response re: Docea Power regarding wound care instructions. Requested nurse cleanse incision area and reapply bandage. Objective Vital signs: Vital Signs Temp Pulse Resp BP Pulse Ox 09/05/17 08:38 95 09/05/17 06:32 98.0 F 70 16 114/67 95 09/05/17 00:00 98.1 F 74 16 106/65 96 09/04/17 18:54 97.6 F 79 14 102/64 96 09/04/17 15:48 98.7 F 76 18 99/60 98 09/04/17 10:45 98.1 F 79 18 116/74 95 Intake and Output 09/04/17 09/05/17 09/05/17 23:59 07:59 15:59 Intake Total 400 / 400 Balance 400 / 400 Intake: Oral 400 / 400 Other: Meal Dinner Percent of Meal Consumed 80% # Voids 2 - Labs CBC & BMP: 09/02/17 16:35 09/02/17 16:35 Labs: Abnormal lab results RBC 3.28 M/mcL (3.82-4.97) L 09/02/17 16:35 Hgb 9.6 g/dL (11.5-15.4) L 09/02/17 16:35 Hct 30.1 % (35.3-44.9) L 09/02/17 16:35 MPV 8.8 fL (9.4-12.4) L 09/02/17 16:35 Chloride 110 mEq/L (98-107) H 09/02/17 16:35 Carbon Dioxide 20 mEq/L (23-29) L 09/02/17 16:35 Creatinine 0.58 mg/dL (0.60-1.20) L 09/02/17 16:35 Glucose 140 mg/dL (70-105) H 09/02/17 16:35 Calcium 8.5 mg/dL (8.6-10.3) L 09/02/17 16:35 Consult Discharge Plan - Plan Referrals: Danya Adkins, JORGE [Primary Care Provider] -
[2017-09-05 15:08] VITALS: BP 112/67
== END 2017-09-05 18:19 | disposition home health service (06) ==
LOC: 3NENU 16:24 → EMEROO 16:24 → 3NENU 20:08
PROVIDERS: ADMIT Orthopaedic Surgery Orthopaedic Surgery of the Spine; ATTEND Orthopaedic Surgery Orthopaedic Surgery of the Spine